=== PATIENT | male | born 1990 | race Two or more races ===

== ENCOUNTER 2017-03-01 14:06 | Inpatient (IN) | payer OTHER ==
[~2017-03-01] VITALS: Ht 180.3 cm; Wt 79.4 kg
--- NOTE | 2017-03-01 14:23 | Emergency Room Report ---
History of Present Illness General Chief Complaint: Skin Rash/Abscess Source: Patient Present Illness HPI Patient's 26-year-old male presented after increased bilateral groin pain. Patient had prior history of hidradenitis suppurativa. Patient previously had surgery on both axilla. The patient denied any current fever. He reported having open lesions to both inguinal areas. He denied any vomiting or diarrhea. He reported having moderate pain. Allergies: Coded Allergies: No Known Allergies (Unverified , 03/01/17) Patient History Past Medical History: see triage record Reviewed Nursing Documentation: PMH: Agreed, PSxH: Agreed Nursing Documentation-PMH Past Medical History: No History, Except For Review of Systems All Other Systems: negative except mentioned in HPI Physical Exam Vital Signs Date Time Temp Pulse Resp B/P Pulse Ox O2 Delivery O2 Flow Rate FiO2 03/01/17 14:08 97.9 130 20 138/74 99 Room Air Sp02 EP Interpretation: reviewed, normal General Appearance: normal inspection, well appearing, no apparent distress, alert, GCS 15, non-toxic Head: atraumatic ENT: normal ENT inspection, hearing grossly normal, normal voice Neck: normal inspection, full range of motion, supple, no bony tend Respiratory: normal inspection, lungs clear, normal breath sounds, no respiratory distress, no retraction, no wheezing Cardiovascular #1: regular rate, rhythm, no edema Gastrointestinal: normal inspection, normal bowel sounds, non tender, soft, no guarding, no hernia Genitourinary: no CVA tenderness Musculoskeletal: normal inspection, back normal, normal range of motion Neurologic: normal inspection, alert, oriented x3, responsive, drawing frame tender III-XII nml as tested, speech normal Psychiatric: normal inspection, judgement/insight normal, mood/affect normal Skin: other - lesion to both inguinal area Medical Decision Making Diagnostic Impression: Primary Impression: Hidradenitis suppurativa ER Course Patient presented for extremity pain. Differential diagnosis included was not limited to cellulitis, abscess, hidradenitis, Fourniere's gangrene, folliculitis , among others. Because of complexity of patient's case laboratory testing and imaging studies were ordered. The patient was given IV antibiotics and pain medications. Laboratory studies were unremarkable except for mild hyperglycemia Dr. Gallardo was contacted for inpatient management for Dr. Chavez. EKG interpreted by me shows sinus tachycardia [address] or T wave changes. Labs Test 03/01/17 14:48 White Blood Count 10.4 K/UL (4.8-10.8) Red Blood Count 5.41 M/UL (4.70-6.10) Hemoglobin 14.8 G/DL (14.2-18.0) Hematocrit 46.0 % (42.0-52.0) Mean Corpuscular Volume 85 FL (80-99) Mean Corpuscular Hemoglobin 27.3 PG (27.0-31.0) Mean Corpuscular Hemoglobin Concent 32.2 G/DL (32.0-36.0) Red Cell Distribution Width 13.8 % (11.6-14.8) Platelet Count 388 K/UL (150-450) Mean Platelet Volume 5.5 FL (6.5-10.1) Neutrophils (%) (Auto) 74.9 % (45.0-75.0) Lymphocytes (%) (Auto) 15.9 % (20.0-45.0) Monocytes (%) (Auto) 4.5 % (1.0-10.0) Eosinophils (%) (Auto) 4.0 % (0.0-3.0) Basophils (%) (Auto) 0.8 % (0.0-2.0) Prothrombin Time 10.7 SEC (9.30-11.50) Prothromb Time International Ratio 1.1 (0.9-1.1) Activated Partial Thromboplast Time 31 SEC (23-33) Sodium Level 136 mEQ/L (135-145) Potassium Level 3.7 mEQ/L (3.4-4.9) Chloride Level 97 mEQ/L (98-107) Carbon Dioxide Level 28 mEQ/L (20-30) Anion Gap 11 (5-15) Blood Urea Nitrogen 11 mg/dL (7-23) Creatinine 0.7 mg/dL (0.7-1.2) Estimat Glomerular Filtration Rate > 60 mL/min (>60) Glucose Level 134 mg/dL (74-106) Calcium Level 9.6 mg/dL (8.6-10.2) Total Bilirubin 0.3 mg/dL (0.0-1.2) Aspartate Amino Transf (AST/SGOT) 18 U/L (5-40) Alanine Aminotransferase (ALT/SGPT) 16 U/L (3-41) Alkaline Phosphatase 74 U/L (40-129) Total Protein 8.8 g/dL (6.6-8.7) Albumin 4.2 g/dL (3.5-5.2) Globulin 4.6 g/dL Albumin/Globulin Ratio 0.9 (1.0-2.7) EKG Diagnostic Results Rate: tachycardiac - 107 Rhythm: NSR ST Segments: no acute changes Chest X-Ray Diagnostic Results EP Interpretation: Yes Findings: no consolidation, no effusion, no pneumothorax, no acute cardiopulmonary disease Number of Views: 1 Last Vital Signs Date Time Temp Pulse Resp B/P Pulse Ox O2 Delivery O2 Flow Rate FiO2 03/01/17 14:08 97.9 130 20 138/74 99 Room Air Status: unchanged Disposition: ADMITTED INPATIENT Condition: Serious Carroll Wallace March 01, 2017 14:23
[2017-03-01] MEDS ORDERED: ceFAZolin sod 1 GM in NS 55 ML IVPB ONE (14:30)
[2017-03-01] MEDS ORDERED: Morphine Sulfate 4mg/ml Inj IVP ONE (14:30)
--- NOTE | 2017-03-01 15:15 | Diagnostic Imaging Report ---
Indication: Chest Pain Comparison: None A single view chest radiograph was obtained. Findings: Cardiomediastinal appearance is within normal limits for age. Pulmonary vascularity is appropriate. The diaphragmatic contour is smooth and costophrenic angles are sharp. No pleural effusions are identified. The bones are unremarkable. Impression: No acute findings
[2017-03-01 15:30] VITALS: BP 138/74
[2017-03-01 15:34] LABS: BASOPHILS % (AUTO) 0.8 % (0.0-2.0); LYMPHOCYTES % (AUTO) 15.9 % (20.0-45.0); MEAN CORPUSCULAR HEMOGLOBIN 27.3 PG (27.0-31.0); MEAN CORPUSCULAR HGB CONC 32.2 G/DL (32.0-36.0); MEAN CORPUSCULAR VOLUME 85 FL (80-99); MEAN PLATELET VOLUME 5.5 FL (6.5-10.1); MONOCYTES % (AUTO) 4.5 % (1.0-10.0); NEUTROPHILS % (AUTO) 74.9 % (45.0-75.0); PLATELET COUNT 388 K/UL (150-450); RED BLOOD COUNT 5.41 M/UL (4.70-6.10); RED CELL DISTRIBUTION WIDTH 13.8 % (11.6-14.8); WHITE BLOOD COUNT 10.4 K/UL (4.8-10.8)
[2017-03-01 15:39] LABS: INR 1.1 (0.9-1.1); PROTHROMBIN TIME 10.7 SEC (9.30-11.50)
[2017-03-01 15:42] LABS: ALANINE AMINOTRANSFERASE 16 U/L (3-41); ALBUMIN/GLOBULIN RATIO 0.9 (1.0-2.7); ANION GAP 11 (5-15); ASPARTATE AMINO TRANSFERASE 18 U/L (5-40); CALCIUM 9.6 mg/dL (8.6-10.2); CARBON DIOXIDE 28 mEQ/L (20-30); CHLORIDE 97 mEQ/L (98-107); CREATININE 0.7 mg/dL (0.7-1.2); GLOMERULAR FILTRATION RATE > 60 mL/min (>60); HEMOLYSIS 2; POTASSIUM 3.7 mEQ/L (3.4-4.9); SODIUM 136 mEQ/L (135-145); TOTAL PROTEIN 8.8 g/dL (6.6-8.7)
[2017-03-01 17:13] VITALS: BP 114/72
[2017-03-01] MEDS ORDERED: CYMBALTA60 MG ORAL (17:34)
[2017-03-01] MEDS ORDERED: NORCO 10/3251 EA ORAL (17:34)
--- NOTE | 2017-03-01 18:43 | History and Physical ---
History of Present Illness General Date patient seen: March 01, 2017 Time patient seen: 18:38 Reason for Hospitalization: Skin Rash/Abscess Present Illness HPI 26 y/o man with hx of hidradenitis suppurativa, s/p multiple surgeries in the past for axilla and groins, presents to ER with groin pain, not amenable to outpt pain meds. Denies any fevers/chills, has taken multiple doses of outpt abx without much improvement. Pt has excellent exercise tolerance, and has not had any complications from gen anesthesia with his previous surgeries Allergies: Coded Allergies: No Known Allergies (Unverified , 03/01/17) Medication History Scheduled Duloxetine Hcl* (Cymbalta*), 60 MG ORAL DAILY, (Reported) Scheduled PRN Hydrocodone/Acetaminophen (Hydrocodon-Acetaminophn 10-325), 1 TAB ORAL BID PRN for For Pain, (Reported) Patient History History Provided By: Patient Healthcare decision maker Resuscitation status Advanced Directive on File Past Medical/Surgical History Past Medical/Surgical History: (1) Hidradenitis suppurativa Family History Family History: Patient reports no known family medical history. Social History Social History: (1) No significant social history Review of Systems ROS Narrative CONSTITUTIONAL: No weight loss, fever, chills, weakness or fatigue. HEENT: Eyes: No visual loss, blurred vision, double vision or yellow sclerae. Ears, Nose, Throat: No hearing loss, sneezing, congestion, runny nose or sore throat. SKIN: No rash or itching. CARDIOVASCULAR: No chest pain, chest pressure or chest discomfort. No palpitations or edema. RESPIRATORY: No shortness of breath, cough or sputum. GASTROINTESTINAL: No anorexia, nausea, vomiting or diarrhea. No abdominal pain or blood. NEUROLOGICAL: No headache, dizziness, syncope, paralysis, ataxia, numbness or tingling in the extremities. No change in bowel or bladder control. MUSCULOSKELETAL: No muscle, back pain, joint pain or stiffness. +groin pain HEMATOLOGIC: No anemia, bleeding or bruising. LYMPHATICS: No enlarged nodes. No history of splenectomy. PSYCHIATRIC: No history of depression or anxiety. ENDOCRINOLOGIC: No reports of sweating, cold or heat intolerance. No polyuria or polydipsia. ALLERGIES: No history of asthma, hives, eczema or rhinitis. Physical Exam Physical Exam Narrative General: alert, cooperative, no distress, appears stated age Head: normocephalic, without obvious abnormality, atraumatic Eyes: conjunctivae/corneas clear. PERRL, EOM's intact Throat: lips, mucosa, and tongue normal. MMM Neck: supple, symmetrical, trachea midline, and no JVD Lungs: clear to auscultation bilaterally Heart: regular rate and rhythm, S1, S2 normal, no murmur, click, rub or gallop Abdomen: soft, non-tender, non-distended, bowel sounds normal; no masses or organomegaly, multiple open lesions in the groin area Extremities: extremities normal, atraumatic, no cyanosis or edema Pulses: 2+ and symmetric Skin: skin color, texture, turgor normal; no rashes or lesions Neurologic: grossly normal, no focal deficits Last 24 Hour Vital Signs Date Time Temp Pulse Resp B/P Pulse Ox O2 Delivery O2 Flow Rate FiO2 03/01/17 17:14 76 20 114/72 100 Room Air 03/01/17 17:13 97.6 76 20 114/72 100 Room Air 03/01/17 15:30 97.9 72 20 138/74 99 Room Air 03/01/17 14:08 97.9 130 20 138/74 99 Room Air Laboratory Tests Test 03/01/17 14:48 White Blood Count 10.4 K/UL (4.8-10.8) Red Blood Count 5.41 M/UL (4.70-6.10) Hemoglobin 14.8 G/DL (14.2-18.0) Hematocrit 46.0 % (42.0-52.0) Mean Corpuscular Volume 85 FL (80-99) Mean Corpuscular Hemoglobin 27.3 PG (27.0-31.0) Mean Corpuscular Hemoglobin Concent 32.2 G/DL (32.0-36.0) Red Cell Distribution Width 13.8 % (11.6-14.8) Platelet Count 388 K/UL (150-450) Mean Platelet Volume 5.5 FL (6.5-10.1) L Neutrophils (%) (Auto) 74.9 % (45.0-75.0) Lymphocytes (%) (Auto) 15.9 % (20.0-45.0) L Monocytes (%) (Auto) 4.5 % (1.0-10.0) Eosinophils (%) (Auto) 4.0 % (0.0-3.0) H Basophils (%) (Auto) 0.8 % (0.0-2.0) Prothrombin Time 10.7 SEC (9.30-11.50) Prothromb Time International Ratio 1.1 (0.9-1.1) Activated Partial Thromboplast Time 31 SEC (23-33) Sodium Level 136 mEQ/L (135-145) Potassium Level 3.7 mEQ/L (3.4-4.9) Chloride Level 97 mEQ/L (98-107) L Carbon Dioxide Level 28 mEQ/L (20-30) Anion Gap 11 (5-15) Blood Urea Nitrogen 11 mg/dL (7-23) Creatinine 0.7 mg/dL (0.7-1.2) Estimat Glomerular Filtration Rate > 60 mL/min (>60) Glucose Level 134 mg/dL (74-106) H Calcium Level 9.6 mg/dL (8.6-10.2) Total Bilirubin 0.3 mg/dL (0.0-1.2) Aspartate Amino Transf (AST/SGOT) 18 U/L (5-40) Alanine Aminotransferase (ALT/SGPT) 16 U/L (3-41) Alkaline Phosphatase 74 U/L (40-129) Total Protein 8.8 g/dL (6.6-8.7) H Albumin 4.2 g/dL (3.5-5.2) Globulin 4.6 g/dL Albumin/Globulin Ratio 0.9 (1.0-2.7) L Height (Feet): 5 Height (Inches): 11.00 Weight (Pounds): 175 Assessment/Plan Problem List: (1) Abscess Assessment & Plan: Admit to inpatient Check blood cx Pain control Supp care IV abx Plastic surgery consult If patient is required to have surgery, based on the patient's medical history, and other available ancillary data, the patient is a LOW risk for an INTERMEDIATE risk procedure. Per the most recent ACC/AHA guidelines, the patient does not need any further cardiopulmonary testing prior to the procedure and there do not appear to be any clear medical contraindications to proceeding with the proposed procedure. A total of 32 additional mins of time was spent above and beyond the time of the face to face visit ICD Codes: L02.91 - Cutaneous abscess, unspecified SNOMED: [id number] ERNESTINE JAIMES March 01, 2017 18:43
[2017-03-01] MEDS ORDERED: Mylanta II UD 30ml ORAL PRN (18:45)
[2017-03-01] MEDS ORDERED: LORazepam Inj 2mg/ml 1ml IV PRN (18:45)
[2017-03-01] MEDS ORDERED: Miralax 17gm pkt ORAL PRN (18:45)
[2017-03-01] MEDS ORDERED: Morphine Sulfate 2mg/ml Inj IVP PRN (18:45)
[2017-03-01] MEDS ORDERED: Milk of Magnesia 30ml Ud ORAL PRN (18:45)
[2017-03-01] MEDS ORDERED: Morphine Sulfate 4mg/ml Inj IVP PRN (18:45)
[2017-03-01] MEDS: Docusate 100mg cap ORAL SCH (20:41)
[2017-03-01] MEDS: D5NS 1,000 ML IV SCH (20:43)
[2017-03-01 21:31] VITALS: BP 118/77
[2017-03-01] MEDS: ceFAZolin sod 1 GM in D5W 55 ML IVPB SCH (22:22)
[2017-03-02] VITALS (16 sets, daily range): BP systolic 97–128; BP diastolic 48–73
[2017-03-02 05:13] LABS: ANION GAP 13 (5-15); CALCIUM 9.3 mg/dL (8.6-10.2); CARBON DIOXIDE 26 mEQ/L (20-30); CHLORIDE 99 mEQ/L (98-107); CREATININE 0.6 mg/dL (0.7-1.2); GLOMERULAR FILTRATION RATE > 60 mL/min (>60); HEMOLYSIS 0; POTASSIUM 4.3 mEQ/L (3.4-4.9); SODIUM 138 mEQ/L (135-145)
[2017-03-02] MEDS: ceFAZolin sod 1 GM in D5W 55 ML IVPB SCH ×3 (06:17→21:39)
--- NOTE | 2017-03-02 08:23 | Pre-Procedure Note/Attestation ---
Pre-Procedure Note/Attestation Complete Prior to Procedure Planned Procedure: bilateral Procedure Narrative: Excision of bilateral groin tissue and flap elevation Attestation I attest that I discussed the nature of the procedure; its benefits; risks and complications; and alternatives (and the risks and benefits of such alternatives ), prior to the procedure, with the patient (or the patient's legal sales representative meats). I attest that, if there was a reasonable possibility of needing a blood transfusion, the patient (or the patient's legal sales representative meats) was given the [facility] standardized written summary, pursuant to the Ryne Archana Blood Safety Act ([place] Health and Safety Code # 1645, as amended). I attest that I re-evaluated the patient just prior to the surgery and that there has been no change in the patient's H&P, except as documented below: RENÉE ANNE March 02, 2017 08:23
--- NOTE | 2017-03-02 08:25 | Operative Note - PDOC ---
Operative Note Operative Note Procedure: Bilateral groin infected tissue excision and flap elevation Post-op Diagnosis: same as pre-op Surgeon: Brandon Skate Shop Attendant: Jeremiah Anesthesia: general Specimen: yes Complications: none Condition: stable Estimated Blood Loss: minimal Drains: none Implant(s) used?: No RENÉE ANNE March 02, 2017 08:25
[2017-03-02] MEDS ORDERED: Bacitracin 50000 Units Vial ONE (08:45)
[2017-03-02] MEDS ORDERED: Lidocaine 2% 20mg/ml/Epi 0.005mg/ml 20ml vial ONE ×3 (08:45→13:24)
[2017-03-02] MEDS: Heparin 5000 units/ml inj SUBQ SCH ×2 (09:00→21:40)
[2017-03-02] MEDS: Docusate 100mg cap ORAL SCH ×2 (09:00→21:39)
[2017-03-02] MEDS ORDERED: Neostigmine 1mg/ml 10ml Inj ONE (09:00)
[2017-03-02] MEDS ORDERED: Nimbex 2mg/ml Inj 10ML IVP ONE (09:00)
[2017-03-02] MEDS ORDERED: Propofol 10mg/ml 20ml IV ONE (09:00)
[2017-03-02] MEDS ORDERED: fentaNYL 100 mcg/2 mL IV ONE (09:00)
[2017-03-02] MEDS ORDERED: Sterile Water Irrig 1000ml IRRIG ONE (09:00)
[2017-03-02] MEDS ORDERED: LR 1000ml ONE ×2 (09:00)
[2017-03-02] MEDS: Lactobacillus-GG tablet ORAL SCH ×2 (09:00→17:51)
[2017-03-02] MEDS ORDERED: Succinylcholine 20mg/ml 10ml vial ONE (09:00)
[2017-03-02] MEDS ORDERED: Morphine Sulfate 10mg/ml Inj ONE (09:00)
[2017-03-02] MEDS ORDERED: Ketorolac 30mg Inj ONE (09:00)
[2017-03-02] MEDS ORDERED: Glycopyrrolate 0.2mg/ml 1ml Vial ONE (09:00)
[2017-03-02] MEDS ORDERED: Midazolam 2mg/2ml Inj ONE (09:00)
[2017-03-02] MEDS ORDERED: NS Irrig 1000ml ONE (09:00)
[2017-03-02] MEDS ORDERED: LR 1000ml 1,000 ML IVLG SCH (10:16)
--- NOTE | 2017-03-02 10:16 | Anethesia Preoperative Eval ---
Anesthesia Pre-op PMH/ROS General Date of Evaluation: March 02, 2017 Time of Evaluation: 10:10 Anesthesiologist: Zac ASA Score: ASA 2 Mallampati Score Class I : Soft palate, uvula, fauces, pillars visible Class II: Soft palate, uvula, fauces visible Class III: Soft palate, base of uvula visible Class IV: Only hard plate visible Mallampati Classification: Class II Surgeon: Brandon Diagnosis: Recurrent HS Surgical Procedure: Excision of bilateral groin hydradenitis Anesthesia History: none Family History: no anesthesia problems Allergies: Coded Allergies: No Known Allergies (Unverified , 03/01/17) Medications: see eMAR Past Medical History Cardiovascular: Denies: CAD, HTN, NM, arrhythmia, other, valve dz Pulmonary: Denies: COPD, OPHELIA, asthma, other Gastrointestinal/Genitourinary: Reports: GERD - mild, Denies: CRI, ESRD, other Neurologic/Psychiatric: Reports: depression/anxiety, Denies: CVA, TIA, dementia, other Endocrine: Denies: DM, hypothyroidism, other, steroids HEENT: Denies: [place] (L), [place] (R), cataract (L), cataract (R), glaucoma, other Hematology/Immune: Denies: DVT, anemia, bleeding disorder, other Musculoskeletal/Integumentary: Reports: other - Recurrent HS PMH Narrative: as above PSxH Narrative: Multiple Sx for HS treatment. Anesthesia Pre-op Phys. Exam Physician Exam Last Vital Signs Date Time Temp Pulse Resp B/P Pulse Ox O2 Delivery O2 Flow Rate FiO2 03/02/17 08:00 97.7 91 20 116/70 99 Room Air Constitutional: NAD Neurologic: CN 2-12 intact Cardiovascular: RRR, no M/R/G Respiratory: CTA Gastrointestinal: S/NT/ND Airway Exam Mallampati Score: Class II MO: full Neck: flexible ROM: full Teeth: intact Dentures: no lower, no upper Anesthesia Pre-op A/P Labs Hematology Test 03/01/17 14:48 White Blood Count 10.4 K/UL (4.8-10.8) Red Blood Count 5.41 M/UL (4.70-6.10) Hemoglobin 14.8 G/DL (14.2-18.0) Hematocrit 46.0 % (42.0-52.0) Mean Corpuscular Volume 85 FL (80-99) Mean Corpuscular Hemoglobin 27.3 PG (27.0-31.0) Mean Corpuscular Hemoglobin Concent 32.2 G/DL (32.0-36.0) Red Cell Distribution Width 13.8 % (11.6-14.8) Platelet Count 388 K/UL (150-450) Mean Platelet Volume 5.5 FL (6.5-10.1) L Neutrophils (%) (Auto) 74.9 % (45.0-75.0) Lymphocytes (%) (Auto) 15.9 % (20.0-45.0) L Monocytes (%) (Auto) 4.5 % (1.0-10.0) Eosinophils (%) (Auto) 4.0 % (0.0-3.0) H Basophils (%) (Auto) 0.8 % (0.0-2.0) Coagulation Test 03/01/17 14:48 Prothrombin Time 10.7 SEC (9.30-11.50) Prothromb Time International Ratio 1.1 (0.9-1.1) Activated Partial Thromboplast Time 31 SEC (23-33) Chemistry Test 03/01/17 14:48 03/02/17 04:30 Sodium Level 136 mEQ/L (135-145) 138 mEQ/L (135-145) Potassium Level 3.7 mEQ/L (3.4-4.9) 4.3 mEQ/L (3.4-4.9) Chloride Level 97 mEQ/L (98-107) L 99 mEQ/L (98-107) Carbon Dioxide Level 28 mEQ/L (20-30) 26 mEQ/L (20-30) Anion Gap 11 (5-15) 13 (5-15) Blood Urea Nitrogen 11 mg/dL (7-23) 10 mg/dL (7-23) Creatinine 0.7 mg/dL (0.7-1.2) 0.6 mg/dL (0.7-1.2) L Estimat Glomerular Filtration Rate > 60 mL/min (>60) > 60 mL/min (>60) Glucose Level 134 mg/dL (74-106) H 110 mg/dL (74-106) H Calcium Level 9.6 mg/dL (8.6-10.2) 9.3 mg/dL (8.6-10.2) Total Bilirubin 0.3 mg/dL (0.0-1.2) Aspartate Amino Transf (AST/SGOT) 18 U/L (5-40) Alanine Aminotransferase (ALT/SGPT) 16 U/L (3-41) Alkaline Phosphatase 74 U/L (40-129) Total Protein 8.8 g/dL (6.6-8.7) H Albumin 4.2 g/dL (3.5-5.2) Globulin 4.6 g/dL Albumin/Globulin Ratio 0.9 (1.0-2.7) L Risk Assessment & Plan Assessment: ASA 2 Plan: GA wit ETT PONV prevention Status Change Before Surgery: No Pre-Antibiotics Drug: Ancef 1gr. Given Within 1 Hr of Incision: Yes Time Given: 10:32 SEB MCWILLIAMS M.D. March 02, 2017 10:16
[2017-03-02] MEDS ORDERED: Metoclopramide 10mg/2ml Inj IVP PRN (10:30)
[2017-03-02] MEDS ORDERED: Meperidine 25mg/0.5ml Inj IV PRN (10:30)
[2017-03-02] MEDS ORDERED: Ketorolac 30mg Inj IV PRN (10:30)
[2017-03-02] MEDS ORDERED: Hydromorphone 0.5mg/0.5ml inj IVP PRN (10:30)
[2017-03-02] MEDS ORDERED: DiphenhydrAMINE 50mg/ml Inj IVP PRN (10:30)
[2017-03-02] MEDS ORDERED: PCA HYDROmorphone 1mg/ml 30 ML IV PRN (10:30)
[2017-03-02] MEDS ORDERED: Rate Change PCA 1 Each MISC PRN (10:30)
[2017-03-02] MEDS ORDERED: Midazolam 2mg/2ml Inj IVP PRN (10:30)
[2017-03-02] MEDS ORDERED: Surgicel 4in x 8in TOPIC ONE (10:33)
--- NOTE | 2017-03-02 11:08 | Immediate Post-Op Evaluation ---
Immediate Post-Op Evalulation Immediate Post-Op Evalulation Procedure: Excision of bilateral groin hydradenitis Date of Evaluation: March 02, 2017 Time of Evaluation: 11:07 IV Fluids: 1500 Blood Products: none Estimated Blood Loss: 100 Urinary Output: 100 Blood Pressure Systolic: 103 Blood Pressure Diastolic: 56 Pulse Rate: 92 Respiratory Rate: 20 O2 Sat by Pulse Oximetry: 99 Temperature (Fahrenheit): 98.6 Pain Score (1-10): 2 Nausea: No Vomiting: No Complications none Patient Status: reacts, patent, extubated, none Hydration Status: adequate SEB MCWILLIAMS M.D. March 02, 2017 11:08
[2017-03-02] MEDS: PCA HYDROmorphone 1mg/ml 30 ML IV PRN (12:23)
[2017-03-02] MEDS: D5NS 1,000 ML IV SCH (14:40)
--- NOTE | 2017-03-02 16:48 | Operative Note - Dictated ---
DATE OF OPERATION: 03/01/2017 PREOPERATIVE DIAGNOSES: 1. Bilateral infected groin masses. 2. Mons abscess. POSTOPERATIVE DIAGNOSIS: 1. Bilateral infected groin masses. 2. Mons abscess. PROCEDURES: 1. Radical excision of left groin tissue. 2. Radical excision of right groin tissue. 3. Debridement of mons. 4. Elevation of a fasciocutaneous medial thigh flap for staged closure of left groin wound. 5. Elevation of a fasciocutaneous medial thigh flap for a staged closure of right groin wound. 6. Elevation of a fasciocutaneous superior abdominal flap for closure of mons wound. SURGEON: Bradley Taylor M.D. SILO OPERATOR: Chastity Daniels M.D. ANESTHESIA: General. COMPLICATIONS: None. SPECIMEN: Included three specimens, one from each groin, one from the mons. EBL: 25 mL. DISPOSITION: Stable to the recovery room. INDICATIONS FOR SURGERY: This is a 26-year-old male, admitted to the emergency room with areas of drainage and pus in bilateral groin and mons regions. In addition, he has got evidence of ongoing infection in his buttock in the pilonidal region. He was complaining of significant amount of pain in these areas. He was admitted for IV antibiotics and upon evaluation by me I felt that he was an appropriate candidate for a staged approach of excision with reconstruction. He understands the risks, benefits of surgery and agrees to proceed. DETAILS OF THE OPERATION: The patient was brought to the operating room and laid in the lithotomy position on the operating table. His bilateral groin, upper thigh, lower abdomen, and perineal regions were prepped and draped in a sterile and usual fashion. Preoperatively the areas that needed to be excised were marked and we first began by debriding the mons tissue which was in the central portion of the mons and measured approximately 4 x 5 centimeters. A viral-shaped incision was made to excise the infected tissue on block down to healthy bleeding tissue. Following this, the wound was then copiously irrigated with pulse lavage and hemostasis was achieved. A superior fasciocutaneous flap had to be elevated to allow for a tension-free closure of the repair at a second stage as the wound was not amenable for primary closure. This was done with electrocautery used to undermine the flap with proximal and distal incisions made to fully mobilize the flap with perforators off of the superficial and inferior epigastric artery feeding the flap. We then turned our attention to the groin. On the right side, we used a #10 blade to perform a radical excision of the entire mass, infected mass all the way down to the level of the adductor fascia. Once the mass was completely excised, we then proceeded to raise the medial thigh flap based off of perforators of the superficial femoral artery. The flap was elevated at the fasciocutaneous level with proximal and distal incisions made to fully mobilize the flap and then upon mobilization we noted that the defect could be closed primarily with a flap mobilization. The defect prior to flap closure was approximately 12 x 10 cm and then following this the contralateral left groin mass was approached using a #10 blade. The radical excision was performed after the skin incision was done. Electrocautery was used to get down to the adductor fascia to fully excise the infected groin mass. Again on this side, the wound was not amenable to primary closure. As such, a medial thigh flap based off of perforators of the superficial femoral artery had to be elevated with proximal and distal incisions made to fully mobilize the flap. The flap was elevated at the fascia level and upon full mobilization of the flap it was noted that the wound could be closed. This wound measured 13 x 8 cm and in addition of note both groin masses had purulent material coming out of them which was sent for culture. All wounds were copiously irrigated with pulse lavage. Once again, hemostasis was achieved. There was no evidence of ongoing bleeding. The wounds were then packed and the wounds were partially closed with juan pablo with the anticipation of bringing the patient back in 72 to 96 hours for definitive wound closure with flap readvancement and closure. The patient tolerated the procedure well. There was no complications. Bradley Taylor M.D. DR: Carlyle JOB#: [id number] CC:
--- NOTE | 2017-03-02 16:59 | Consultation ---
DATE OF CONSULTATION: 03/02/2017 REASON FOR CONSULTATION: Multiple infected groin tissues and buttock abscesses. HISTORY OF PRESENT ILLNESS: This is a 26-year-old male, admitted to the emergency room for infection of his groin and buttock region. He has been in significant amount of pain associated with drainage requiring occasional antibiotics as well as a daily use of pain medication. Upon evaluation by me, I felt that he was an appropriate candidate for surgical intervention. PAST SURGICAL HISTORY: Significant for previous reconstruction of his axillary regions for hidradenitis. PAST MEDICAL HISTORY: Hidradenitis. ALLERGIES: None. MEDICATIONS: Cymbalta and hydrocodone. PHYSICAL EXAMINATION: GENERAL: The patient is alert and oriented x3. HEART: Regular rate and rhythm. ABDOMEN: Soft, nontender, and nondistended. EXTREMITIES: Examination of the trunk and extremities revealed multiple areas of abscesses with a contiguous infected regions within both groins. There are abscess in the mons. There is also extensive induration and abscesses in inner buttocks on both sides. With an extensive pilonidal abscess. ASSESSMENT AND PLAN: This is a 26-year-old male with multiple areas of induration and an infected tissue in the setting of hidradenitis. The patient will require a staged approach to address these areas. At the initial operation, the plan will be to perform a definitive radical excision of bilateral groin tissues with staged reconstruction. He understands that he will need more than one operation to achieve this goal and all those questions were answered and he agrees to proceed to the operating room today. Bradley Taylor M.D. DR: JAYANT JOB#: [id number] CC:
--- NOTE | 2017-03-02 17:06 | General Progress Note ---
Assessment/Plan Problem List: (1) Abscess Assessment & Plan: s/p I+D of groin earlier today Check blood cx Pain control Supp care Cont IV abx DVT ppx Wound care per Plastic surgery A total of 32 additional mins of time was spent above and beyond the time of the face to face visit ICD Codes: L02.91 - Cutaneous abscess, unspecified SNOMED: 994118975 Subjective Date patient seen: March 02, 2017 Time patient seen: 17:04 ROS Limited/Unobtainable: No Allergies: Coded Allergies: No Known Allergies (Unverified , 03/01/17) Subjective s/p surgery earlier today, no periop or postop complications. no chest pain or dyspnea, postop pain well controlled. Objective Last 24 Hour Vital Signs Date Time Temp Pulse Resp B/P Pulse Ox O2 Delivery O2 Flow Rate FiO2 03/02/17 14:18 18 03/02/17 13:55 98.0 03/02/17 13:48 18 03/02/17 13:18 18 03/02/17 12:59 20 03/02/17 12:35 98.0 72 20 106/60 100 Nasal Cannula 2.0 03/02/17 12:30 20 03/02/17 12:23 20 03/02/17 12:15 80 20 111/62 100 Nasal Cannula 2.0 03/02/17 12:12 98.0 03/02/17 12:12 98.0 03/02/17 12:00 91 20 112/63 100 Nasal Cannula 2.0 03/02/17 11:45 89 20 109/64 100 Nasal Cannula 2.0 03/02/17 11:33 87 20 112/62 100 Simple Mask 8.0 03/02/17 11:18 96 20 113/64 100 Simple Mask 8.0 03/02/17 11:10 94 20 109/57 100 Simple Mask 8.0 03/02/17 11:08 92 20 99 03/02/17 11:05 100 20 106/59 100 Simple Mask 8.0 03/02/17 10:58 98.6 119 20 97/48 100 Simple Mask 8.0 03/02/17 08:00 97.7 91 20 116/70 99 Room Air 03/02/17 04:00 97.7 68 18 108/64 97 Room Air 03/02/17 00:16 97.7 77 20 118/73 98 Room Air 03/01/17 21:31 97.7 77 20 118/77 98 Room Air 03/01/17 17:14 76 20 114/72 100 Room Air 03/01/17 17:13 97.6 76 20 114/72 100 Room Air Intake and Output 03/01/17 03/02/17 19:00 07:00 Intake Total 0 ml 350 ml Balance 0 ml 350 ml Intake Oral 0 ml IV Total 350 ml # Voids 2 Laboratory Tests 03/02/17 04:30: Sodium Level 138, Potassium Level 4.3, Chloride Level 99, Carbon Dioxide Level 26, Anion Gap 13, Blood Urea Nitrogen 10, Creatinine 0.6L, Estimat Glomerular Filtration Rate > 60, Glucose Level 110H, Calcium Level 9.3 Height (Feet): 5 Height (Inches): 11.00 Weight (Pounds): 175 Objective General: alert, cooperative, no distress, appears stated age Head: normocephalic, without obvious abnormality, atraumatic Eyes: conjunctivae/corneas clear. PERRL, EOM's intact Throat: lips, mucosa, and tongue normal. MMM Neck: supple, symmetrical, trachea midline, and no JVD Lungs: clear to auscultation bilaterally Heart: regular rate and rhythm, S1, S2 normal, no murmur, click, rub or gallop Abdomen: soft, non-tender, non-distended, bowel sounds normal; no masses or organomegaly Extremities: extremities normal, atraumatic, no cyanosis or edema Pulses: 2+ and symmetric Skin: skin color, texture, turgor normal; no rashes or lesions Neurologic: grossly normal, no focal deficits ERNESTINE JAIMES March 02, 2017 17:06
[2017-03-02] MEDS: PCA shift volume MISC SCH (19:13)
[2017-03-02] MEDS ORDERED: Zolpidem 5mg tab ORAL PRN (21:00)
[2017-03-03] VITALS: BP 107/66
[2017-03-03 04:00] VITALS: BP 121/62
[2017-03-03] MEDS: ceFAZolin sod 1 GM in D5W 55 ML IVPB SCH ×3 (06:08→20:58)
[2017-03-03] MEDS: PCA shift volume MISC SCH ×2 (07:00→19:00)
[2017-03-03] MEDS: D5NS 1,000 ML IV SCH (07:12)
[2017-03-03 08:51] VITALS: BP 109/70
--- NOTE | 2017-03-03 09:55 | General Progress Note ---
Progress Note Progress Note Pt seen and examined. POD# 1 and doing well. Dressings CDI Plan for definitive wound closure on Sunday. Continue abx and pain meds. RENÉE Young MD March 03, 2017 09:55
[2017-03-03] MEDS: Docusate 100mg cap ORAL SCH ×2 (10:50→20:58)
[2017-03-03] MEDS: Lactobacillus-GG tablet ORAL SCH ×2 (10:51→17:47)
[2017-03-03] MEDS: Heparin 5000 units/ml inj SUBQ SCH ×2 (10:52→21:02)
[2017-03-03 12:52] VITALS: BP 130/73
[2017-03-03] MEDS: PCA HYDROmorphone 1mg/ml 30 ML IV PRN (13:08)
--- NOTE | 2017-03-03 15:58 | General Progress Note ---
KELSEY BALDWIN N.P. 03/03/17 1558: Subjective Date patient seen: March 03, 2017 Time patient seen: 15:58 Allergies: Coded Allergies: No Known Allergies (Unverified , 03/01/17) Objective Last 24 Hour Vital Signs Date Time Temp Pulse Resp B/P Pulse Ox O2 Delivery O2 Flow Rate FiO2 03/03/17 13:34 98.2 03/03/17 12:52 98.2 99 22 130/73 96 Nasal Cannula 03/03/17 08:51 98.2 97 18 109/70 95 Nasal Cannula 03/03/17 08:00 18 03/03/17 04:00 18 03/03/17 04:00 97.8 82 18 121/62 99 Nasal Cannula 2.0 03/03/17 00:00 16 03/03/17 00:00 98.1 88 17 107/66 98 Nasal Cannula 2.0 03/02/17 20:37 97.7 76 18 107/65 100 Nasal Cannula 2.0 03/02/17 20:00 18 03/02/17 18:18 18 03/02/17 16:00 97.3 76 17 100/68 100 Nasal Cannula 2.0 Intake and Output 03/02/17 03/03/17 19:00 07:00 Intake Total 2280 ml 610 ml Output Total 450 ml 800 ml Balance 1830 ml -190 ml Intake Oral 480 ml 260 ml IV Total 1800 ml 350 ml Output Urine Total 350 ml 800 ml Estimated Blood Loss 100 ml Height (Feet): 5 Height (Inches): 11.00 Weight (Pounds): 175 ERNESTINE JAIMES 03/05/17 1446: Assessment/Plan Assessment/Plan I saw and examined the patient, reviewed the case in detail, reviewed radiology and EKG if applicable, in addition reviewing the laboratory data and microbiology. I agree with the history, physical examination findings, assessment and plan of care as outlined above by the Nurse Practitioner with any additions or modifications noted. Subjective Allergies: Coded Allergies: No Known Allergies (Unverified , 03/01/17) KELSEY BALDWIN N.P. March 03, 2017 15:58 ERNESTINE JAIMES March 05, 2017 14:46
[2017-03-03 16:00] VITALS: BP 116/76
--- NOTE | 2017-03-03 16:00 | General Progress Note ---
KELSEY BALDWIN N.P. 03/03/17 1600: Assessment/Plan Assessment/Plan Assessment & Plan: s/p I+D of groin 03/02/17 Check blood cx- growth so far Pain control Supp care Cont IV abx DVT ppx Wound care per Plastic surgery, dressing changed today, likely to OR on Sunday Subjective Date patient seen: March 03, 2017 Time patient seen: 16:00 Constitutional: Denies: chills, diaphoresis, fever HEENT: Denies: blurred vision, eye pain, tearing Cardiovascular: Denies: chest pain, edema Respiratory: Denies: cough, orthopnea, shortness of breath Gastrointestinal/Abdominal: Denies: abdomen distended, abdominal pain, nausea, poor appetite Genitourinary: Denies: burning, discharge, frequency Neurologic/Psychiatric: Denies: anxiety, depressed, emotional problems Endocrine: Denies: excessive sweating, flushing Hematologic/Lymphatic: Denies: anemia, easy bleeding Allergies: Coded Allergies: No Known Allergies (Unverified , 03/01/17) Subjective To OR on Sunday. Dressings changed by Dr. Taylor. + constipation. Objective Last 24 Hour Vital Signs Date Time Temp Pulse Resp B/P Pulse Ox O2 Delivery O2 Flow Rate FiO2 03/03/17 13:34 98.2 03/03/17 12:52 98.2 99 22 130/73 96 Nasal Cannula 03/03/17 08:51 98.2 97 18 109/70 95 Nasal Cannula 03/03/17 08:00 18 03/03/17 04:00 18 03/03/17 04:00 97.8 82 18 121/62 99 Nasal Cannula 2.0 03/03/17 00:00 16 03/03/17 00:00 98.1 88 17 107/66 98 Nasal Cannula 2.0 03/02/17 20:37 97.7 76 18 107/65 100 Nasal Cannula 2.0 03/02/17 20:00 18 03/02/17 18:18 18 Intake and Output 03/02/17 03/03/17 19:00 07:00 Intake Total 2280 ml 610 ml Output Total 450 ml 800 ml Balance 1830 ml -190 ml Intake Oral 480 ml 260 ml IV Total 1800 ml 350 ml Output Urine Total 350 ml 800 ml Estimated Blood Loss 100 ml Height (Feet): 5 Height (Inches): 11.00 Weight (Pounds): 175 General Appearance: no apparent distress, alert EENT: PERRL/EOMI, normal ENT inspection Neck: non-tender, normal alignment, supple Cardiovascular: normal peripheral pulses, normal rate Respiratory/Chest: chest wall non-tender, lungs clear, normal breath sounds Abdomen: normal bowel sounds, non tender, soft Edema: no edema noted Arm (L), no edema noted Arm (R), no edema noted Leg (L), no edema noted Leg (R), no edema noted Pedal (L), no edema noted Pedal (R), no edema noted Generalized 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 grossly normal, alert, oriented x 3 Lymphatic: normal anterior cervical (L), normal anterior cervical (R), normal axillary (L), normal axillary (R), normal inguinal (L), normal inguinal (R), normal other, normal posterior cervical (L), normal posterior cervical (R), normal submandibular (L), normal submandibular (R), normal supraclavicular (L), normal supraclavicular (R) ERNESTINE JAIMES 03/05/17 1448: Assessment/Plan Assessment/Plan I saw and examined the patient, reviewed the case in detail, reviewed radiology and EKG if applicable, in addition reviewing the laboratory data and microbiology. I agree with the history, physical examination findings, assessment and plan of care as outlined above by the Nurse Practitioner with any additions or modifications noted. Subjective Allergies: Coded Allergies: No Known Allergies (Unverified , 03/01/17) KELSEY BALDWIN N.PPelon March 03, 2017 16:00 ERNESTINE JAIMES March 05, 2017 14:48
--- NOTE | 2017-03-03 17:23 | 48 Hour Post Anesthesia Eval ---
Post Anesthesia Evaluation Procedure: Excision of bilateral groin hydradenitis Date of Evaluation: March 03, 2017 Time of Evaluation: 15:30 Blood Pressure Systolic: 130 0: 73 Pulse Rate: 99 Respiratory Rate: 18 Temperature (Fahrenheit): 98.2 O2 Sat by Pulse Oximetry: 96 Airway: patent Nausea: No Vomiting: No Pain Intensity: 3 Hydration Status: adequate Cardiopulmonary Status: at baseline Mental Status/LOC: patient returned to baseline Post-Anesthesia Complications: 0 Follow-up care needed: N/A - further care as per primary team SANAM CASTELLANO M.D. March 03, 2017 17:23
[2017-03-03 20:00] VITALS: BP 114/64
[2017-03-03] MEDS: DiphenhydrAMINE 50mg/ml Inj IVP PRN (21:54)
[2017-03-04] VITALS: BP 120/65
[2017-03-04 04:00] VITALS: BP 117/66
[2017-03-04] MEDS: ceFAZolin sod 1 GM in D5W 55 ML IVPB SCH ×3 (05:30→21:31)
[2017-03-04] MEDS: DiphenhydrAMINE 50mg/ml Inj IVP PRN ×2 (05:30→21:32)
[2017-03-04] MEDS: D5NS 1,000 ML IV SCH ×2 (06:51→21:40)
[2017-03-04] MEDS: PCA shift volume MISC SCH ×2 (07:00→19:00)
[2017-03-04] MEDS: Docusate 100mg cap ORAL SCH ×2 (08:53→21:31)
[2017-03-04] MEDS: Lactobacillus-GG tablet ORAL SCH ×2 (08:53→18:35)
[2017-03-04 08:55] VITALS: BP 112/68
[2017-03-04] MEDS: Heparin 5000 units/ml inj SUBQ SCH ×2 (08:57→21:40)
[2017-03-04 12:00] VITALS: BP 121/72
[2017-03-04] MEDS: PCA HYDROmorphone 1mg/ml 30 ML IV PRN (13:21)
[2017-03-04] MEDS ORDERED: Rate Change PCA 1 Each MISC PRN (14:00)
[2017-03-04] MEDS ORDERED: NS Irrig 1000ml ONE (16:02)
[2017-03-04 16:38] VITALS: BP 117/65
[2017-03-04 20:00] VITALS: BP 122/79
--- NOTE | 2017-03-04 20:16 | Cardiology Report ---
APPROVED REPORT EKG Measurement Heart [id number] Sinus tachycardia Otherwise normal ECG
[2017-03-05] VITALS: BP 122/73
[2017-03-05 04:00] VITALS: BP 111/67
[2017-03-05] MEDS: ceFAZolin sod 1 GM in D5W 55 ML IVPB SCH ×3 (06:06→21:02)
[2017-03-05] MEDS: PCA shift volume MISC SCH ×2 (07:08→19:28)
[2017-03-05 08:00] VITALS: BP 119/66
[2017-03-05] MEDS: Lactobacillus-GG tablet ORAL SCH ×2 (08:24→18:23)
[2017-03-05] MEDS: Docusate 100mg cap ORAL SCH ×2 (08:24→21:02)
[2017-03-05] MEDS: Heparin 5000 units/ml inj SUBQ SCH ×2 (08:26→21:00)
[2017-03-05] MEDS: DiphenhydrAMINE 50mg/ml Inj IVP PRN ×3 (09:53→23:49)
--- NOTE | 2017-03-05 11:51 | Anethesia Preoperative Eval ---
Anesthesia Pre-op PMH/ROS General Date of Evaluation: March 05, 2017 Time of Evaluation: 16:10 Anesthesiologist: Mumtaz ASA Score: ASA 2 Mallampati Score Class I : Soft palate, uvula, fauces, pillars visible Class II: Soft palate, uvula, fauces visible Class III: Soft palate, base of uvula visible Class IV: Only hard plate visible Mallampati Classification: Class II Surgeon: Brandon Diagnosis: HS Surgical Procedure: Groin wound closure Allergies: Coded Allergies: No Known Allergies (Unverified , 03/01/17) Past Medical History Cardiovascular: Denies: CAD, HTN, [place], arrhythmia, other, valve dz Pulmonary: Denies: COPD, OPHELIA, asthma, other Gastrointestinal/Genitourinary: Reports: GERD, Denies: CRI, ESRD, other Neurologic/Psychiatric: Reports: depression/anxiety, Denies: CVA, TIA, dementia, other Endocrine: Denies: DM, hypothyroidism, other, steroids HEENT: Denies: [place] AND [place] (L), ASSINIB[place]INE AND [place] (R), cataract (L), cataract (R), glaucoma, other Hematology/Immune: Denies: DVT, anemia, bleeding disorder, other Musculoskeletal/Integumentary: Denies: DDD, DJD, OA, RA, edema, other PMH Narrative: GERD, depression PSxH Narrative: HS surgery Anesthesia Pre-op Phys. Exam Physician Exam Last Vital Signs Date Time Temp Pulse Resp B/P Pulse Ox O2 Delivery O2 Flow Rate FiO2 03/05/17 08:00 16 03/05/17 08:00 98.4 96 119/66 96 Room Air 03/03/17 04:00 2.0 Constitutional: NAD Neurologic: CN 2-12 intact Cardiovascular: RRR, no M/R/G Respiratory: CTA Gastrointestinal: S/NT/ND Airway Exam Mallampati Score: Class II MO: full ROM: full Teeth: intact Anesthesia Pre-op A/P Labs WNL Risk Assessment & Plan Assessment: No interval change Plan: GETA Status Change Before Surgery: ISHAN Wilson M.D. March 05, 2017 11:51
[2017-03-05 12:00] VITALS: BP 114/76
--- NOTE | 2017-03-05 15:02 | General Progress Note ---
Assessment/Plan Problem List: (1) Abscess Assessment & Plan: s/p I+D of groin earlier today Check blood cx Pain control Supp care Cont IV abx DVT ppx Wound care per Plastic surgery A total of 32 additional mins of time was spent above and beyond the time of the face to face visit ICD Codes: L02.91 - Cutaneous abscess, unspecified SNOMED: [id number] Subjective Date patient seen: March 05, 2017 Time patient seen: 15:01 ROS Limited/Unobtainable: No Allergies: Coded Allergies: No Known Allergies (Unverified , 03/01/17) Subjective s/p surgery. No chest pain or dyspnea, postop pain well controlled. Objective Last 24 Hour Vital Signs Date Time Temp Pulse Resp B/P Pulse Ox O2 Delivery O2 Flow Rate FiO2 03/05/17 12:00 97.2 99 20 114/76 99 Room Air 03/05/17 12:00 16 03/05/17 08:00 16 03/05/17 08:00 98.4 96 18 119/66 96 Room Air 03/05/17 04:00 16 03/05/17 04:00 97.5 91 16 111/67 99 Room Air 03/05/17 00:00 16 03/05/17 00:00 98.1 95 16 122/73 97 Room Air 03/04/17 20:00 16 03/04/17 20:00 98.8 103 18 122/79 94 Room Air 03/04/17 16:38 99.5 101 22 117/65 96 Room Air 03/04/17 16:00 18 Intake and Output 03/04/17 03/05/17 19:00 07:00 Intake Total 550 ml 240 ml Output Total 800 ml 750 ml Balance -250 ml -510 ml Intake Oral 240 ml IV Total 550 ml Output Urine Total 800 ml 750 ml Height (Feet): 5 Height (Inches): 11.00 Weight (Pounds): 175 Objective General: alert, cooperative, no distress, appears stated age Head: normocephalic, without obvious abnormality, atraumatic Eyes: conjunctivae/corneas clear. PERRL, EOM's intact Throat: lips, mucosa, and tongue normal. MMM Neck: supple, symmetrical, trachea midline, and no JVD Lungs: clear to auscultation bilaterally Heart: regular rate and rhythm, S1, S2 normal, no murmur, click, rub or gallop Abdomen: soft, non-tender, non-distended, bowel sounds normal; no masses or organomegaly Extremities: extremities normal, atraumatic, no cyanosis or edema Pulses: 2+ and symmetric Skin: skin color, texture, turgor normal; no rashes or lesions Neurologic: grossly normal, no focal deficits ERNESTINE JAIMES March 05, 2017 15:02
--- NOTE | 2017-03-05 15:09 | General Progress Note ---
Progress Note Progress Note Pt seen and examined. Doing well. AVSS Dressings CDI To OR tomorrow for wound closure RENÉE ANNE March 05, 2017 15:09
[2017-03-05] MEDS: PCA HYDROmorphone 1mg/ml 30 ML IV PRN (15:58)
[2017-03-05 16:00] VITALS: BP 120/65
[2017-03-05] MEDS: D5NS 1,000 ML IV SCH (16:00)
[2017-03-05 20:00] VITALS: BP 122/73
[2017-03-05] MEDS ORDERED: D5NS 1000ml IV ONE (21:25)
[2017-03-06] VITALS (17 sets, daily range): BP systolic 115–133; BP diastolic 64–83
[2017-03-06] MEDS: ceFAZolin sod 1 GM in D5W 55 ML IVPB SCH ×2 (06:28→14:00)
[2017-03-06] MEDS: PCA shift volume MISC SCH ×2 (07:00→19:05)
[2017-03-06] MEDS: Lactobacillus-GG tablet ORAL SCH ×2 (08:02→18:00)
[2017-03-06] MEDS: Docusate 100mg cap ORAL SCH ×2 (08:02→20:22)
[2017-03-06] MEDS: Heparin 5000 units/ml inj SUBQ SCH ×2 (08:03→20:24)
[2017-03-06] MEDS ORDERED: Surgicel 4in x 8in TOPIC ONE ×2 (10:07→12:39)
[2017-03-06] MEDS ORDERED: Lidocaine 2% 20mg/ml/Epi 0.005mg/ml 20ml vial ONE ×2 (10:08→12:50)
[2017-03-06] MEDS ORDERED: Bacitracin 50000 Units Vial ONE ×2 (10:08→12:27)
[2017-03-06] MEDS ORDERED: NS Irrig 1000ml IRRIG ONE (11:20)
--- NOTE | 2017-03-06 11:43 | Pre-Procedure Note/Attestation ---
Pre-Procedure Note/Attestation Complete Prior to Procedure Planned Procedure: bilateral Procedure Narrative: Bilateral groin wound closure and buttock lesion excision Attestation I attest that I discussed the nature of the procedure; its benefits; risks and complications; and alternatives (and the risks and benefits of such alternatives ), prior to the procedure, with the patient (or the patient's legal territory service representative). I attest that, if there was a reasonable possibility of needing a blood transfusion, the patient (or the patient's legal territory service representative) was given the [facility] standardized written summary, pursuant to the [place] Blood Safety Act ([place] Health and Safety Code # 1645, as amended). I attest that I re-evaluated the patient just prior to the surgery and that there has been no change in the patient's H&P, except as documented below: RENÉE ANNE March 06, 2017 11:43
--- NOTE | 2017-03-06 11:44 | Operative Note - PDOC ---
Operative Note Operative Note Procedure: Bilateral groin wound closure and buttock lesion excision Post-op Diagnosis: same as pre-op Surgeon: Brandon Switch Box Installer: Jeremaih Anesthesia: general Specimen: yes Condition: stable Estimated Blood Loss: volume Drains: MADISON Implant(s) used?: No RENÉE ANNE March 06, 2017 11:44
[2017-03-06] MEDS ORDERED: Zolpidem 5mg tab ORAL PRN (12:15)
[2017-03-06] MEDS ORDERED: LR 1000ml 1,000 ML IVLG SCH (12:35)
[2017-03-06] MEDS ORDERED: Midazolam 2mg/2ml Inj IVP PRN (12:45)
[2017-03-06] MEDS ORDERED: DiphenhydrAMINE 50mg/ml Inj IVP PRN (12:45)
[2017-03-06] MEDS ORDERED: Metoclopramide 10mg/2ml Inj IVP PRN (12:45)
[2017-03-06] MEDS ORDERED: Meperidine 25mg/0.5ml Inj IV PRN (12:45)
[2017-03-06] MEDS ORDERED: Ketorolac 30mg Inj IV PRN (12:45)
[2017-03-06] MEDS ORDERED: PCA HYDROmorphone 1mg/ml 30 ML IV PRN ×2 (13:00→17:00)
[2017-03-06] MEDS ORDERED: Rate Change PCA 1 Each MISC PRN (13:00)
--- NOTE | 2017-03-06 14:58 | Immediate Post-Op Evaluation ---
Immediate Post-Op Evalulation Immediate Post-Op Evalulation Procedure: Debridement and closure of bilateral groin wounds Date of Evaluation: March 06, 2017 Time of Evaluation: 14:56 IV Fluids: 1200 Blood Products: none Estimated Blood Loss: 50 Urinary Output: 150 Blood Pressure Systolic: 126 Blood Pressure Diastolic: 74 Pulse Rate: 106 Respiratory Rate: 20 O2 Sat by Pulse Oximetry: 99 Temperature (Fahrenheit): 98.6 Pain Score (1-10): 2 Nausea: No Vomiting: No Complications none Patient Status: reacts, patent, extubated, none Hydration Status: adequate Drug: Ancef 1 gr. Given Within 1 Hr of Incision: Yes Time Given: 12:10 SEB MCWILLIAMS M.D. March 06, 2017 14:58
[2017-03-06] MEDS: Hydromorphone 0.5mg/0.5ml inj IVP PRN ×3 (15:19→16:37)
[2017-03-06] MEDS: PCA HYDROmorphone 1mg/ml 30 ML IV PRN (17:12)
--- NOTE | 2017-03-06 18:17 | General Progress Note ---
Assessment/Plan Problem List: (1) Abscess Assessment & Plan: s/p I+D of groin POD#1 f/u blood cx Wound cx enterococcus, change ancef to vanco Pain control Supp care Cont IV abx DVT ppx Wound care per Plastic surgery A total of 32 additional mins of time was spent above and beyond the time of the face to face visit ICD Codes: L02.91 - Cutaneous abscess, unspecified SNOMED: [id number] Subjective Date patient seen: March 06, 2017 ROS Limited/Unobtainable: No Allergies: Coded Allergies: No Known Allergies (Unverified , 03/01/17) Subjective s/p surgery. No chest pain or dyspnea, postop pain well controlled. No periop or postop complications, postop pain well controlled. Objective Last 24 Hour Vital Signs Date Time Temp Pulse Resp B/P Pulse Ox O2 Delivery O2 Flow Rate FiO2 03/06/17 18:10 97.7 03/06/17 18:09 97.7 03/06/17 18:09 97.7 03/06/17 18:08 97.7 03/06/17 18:00 20 03/06/17 17:55 97.7 114 20 115/64 99 Nasal Cannula 2.0 03/06/17 17:30 20 03/06/17 17:15 98.6 108 20 125/83 100 Nasal Cannula 3.0 03/06/17 17:12 20 03/06/17 17:00 108 20 126/80 100 Nasal Cannula 3.0 03/06/17 16:45 110 20 125/79 100 Nasal Cannula 3.0 03/06/17 16:37 110 20 125/79 100 Nasal Cannula 3.0 03/06/17 16:00 110 20 126/80 100 Nasal Cannula 3.0 03/06/17 15:45 114 20 126/80 100 Simple Mask 8.0 03/06/17 15:30 118 20 132/81 100 Simple Mask 8.0 03/06/17 15:19 117 20 129/79 100 Simple Mask 8.0 03/06/17 15:16 119 20 133/82 100 Simple Mask 8.0 03/06/17 15:06 119 20 132/80 100 Simple Mask 8.0 03/06/17 14:58 135 20 131/78 100 Simple Mask 8.0 03/06/17 14:58 106 20 99 03/06/17 14:53 140 20 131/75 100 Simple Mask 8.0 03/06/17 14:48 97.6 143 20 119/65 98 Simple Mask 8.0 03/06/17 08:00 20 03/06/17 08:00 98.4 107 20 128/75 96 Room Air 03/06/17 04:00 16 03/06/17 04:00 97.7 98 20 115/69 97 Room Air 03/06/17 00:00 17 03/05/17 20:00 18 03/05/17 20:00 97.9 100 20 122/73 96 Room Air Intake and Output 03/05/17 03/06/17 19:00 07:00 Intake Total 1345 ml 650 ml Output Total 1400 ml 1000 ml Balance -55 ml -350 ml Intake Oral 840 ml IV Total 505 ml 650 ml Output Urine Total 1400 ml 1000 ml Height (Feet): 5 Height (Inches): 11.00 Weight (Pounds): 175 Objective General: alert, cooperative, no distress, appears stated age Head: normocephalic, without obvious abnormality, atraumatic Eyes: conjunctivae/corneas clear. PERRL, EOM's intact Throat: lips, mucosa, and tongue normal. MMM Neck: supple, symmetrical, trachea midline, and no JVD Lungs: clear to auscultation bilaterally Heart: regular rate and rhythm, S1, S2 normal, no murmur, click, rub or gallop Abdomen: soft, non-tender, non-distended, bowel sounds normal; no masses or organomegaly Extremities: extremities normal, atraumatic, no cyanosis or edema Pulses: 2+ and symmetric Skin: skin color, texture, turgor normal; no rashes or lesions Neurologic: grossly normal, no focal deficits ERNESTINE JAIMES March 06, 2017 18:17
[2017-03-06] MEDS: DiphenhydrAMINE 50mg/ml Inj IVP PRN (18:35)
[2017-03-06] MEDS: D5NS 1,000 ML IV SCH (19:00)
[2017-03-06] MEDS ORDERED: Vancomycin 1.5 GM in D5W 325 ML IVPB ONE (20:00)
--- NOTE | 2017-03-06 21:51 | Operative Note - Dictated ---
DATE OF OPERATION: 03/06/2017 PREOPERATIVE DIAGNOSES: 1. Bilateral open groin wounds. 2. Open lower abdominal wound. 3. Bilateral buttock lesions. POSTOPERATIVE DIAGNOSES: 1. Bilateral open groin wounds. 2. Open lower abdominal wound. 3. Bilateral buttock lesions. PROCEDURES: 1. Preparation of lower abdominal wound for adjacent tissue transfer closure. 2. Adjacent tissue transfer closure of lower abdominal wound. 3. Preparation of left groin wound for flap closure. 4. Elevation of the medial thigh flap with readvancement closure for left groin wound. 5. Preparation of right groin wound for flap closure. 6. Readvancement and elevation of a medial thigh flap on the right for closure of right groin wound. 7. Radical excision of bilateral buttock wounds. SURGEON: Bradley Taylor M.D. CUSTOMER ACQUISITION SPECIALIST: Chastity Daniels M.D. ANESTHESIA: General. COMPLICATIONS: None. DRAINS: Three MADISON's. DISPOSITION: Stable to the recovery room. INDICATIONS FOR SURGERY: This is a 26-year-old male, who is now four days postoperative from radical excision of groin and lower abdominal tissue, who has been getting local wound care and is now ready for definitive flap closure of these wounds. In addition, there are lesions on his buttock, which required radical excision, which we will be performing as well today. DETAILS OF THE OPERATION: The patient was brought to the operating room and laid in the supine position in the operating room table. After induction of anesthesia, he was placed in lithotomy and lower extremity groin and lower abdomen were prepped and draped in a sterile and usual fashion. We first began by debriding the lower abdominal wound and preparing it for adjacent tissue transfer. This wound measured 6 x 6 cm and after debridement and irrigation with pulse lavage, the skin flaps on either side were brought together to allow for adjacent tissue transfer to be completed using #0 and 2-0 Vicryl sutures and juan pablo were used to close the skin. We then turned our attention to the bilateral groin wounds, first on the right side, the wound was debrided of nonviable tissues and following this, the medial thigh. The medial thigh flap that had been previously elevated was then further readvanced with perforators of the superficial femoral artery to blood supply to flap. The proximal and distal incisions were made on the flap and the flap was elevated the fasciocutaneous level to allow for a tension-free closure of the wound. In a similar fashion, the contralateral groin wound was debrided and prepared for flap closure. The anterior medial thigh flap that had been previously elevated had to be readvanced by releasing the proximal distal attachments of the skin. Again, perforators of the superficial femoral artery were feeding this flap and the flaps were both fully mobilized. Both wounds were fully were irrigated with pulse lavage and hemostasis was achieved. We began first on the left groin by performing advancement of the flap to the opposing edge using #0 and 2-0 Vicryl sutures over a MADISON drain and the skin was closed with a combination of juan pablo and 2-0 Prolene. On the right groin, which measured 14 x 13 centimeters despite the flap elevation, we could not achieve 100% flap closure as such there was a 5% opening left centrally to take the tension off the remainder of the closure. The flap was advanced and closed using #0 and 2-0 Vicryl sutures and juan pablo were used to close the skin with Prolene sutures and also 2-0 Prolene used to close the remaining open areas. Again, a 5% defect was left to take the tension off the remainder of the wound. At this point with the lower abdominal and groin wounds closed, we then turned our attention to the bowel bilateral buttock lesions. There are multiple growth on both buttocks with several more on the left buttock. A radical excision was performed by first using a #10 blade to perform an elliptical skin incision around the lesion all way down to the level of subcutaneous tissue. Once the incision was made, electrocautery was then used to radically excised the mass on both sides from the fundal wound bed. Given that this is a fresh wound and proximity to the anus and the possibility of infection being present, I felt it was not appropriate to perform definitive closure of these wounds after radical excision, as such these are packed with some Surgicel and dry packing. The patient was brought back to the operating room within three to five days for definitive closure of this and further excision of infected tissue by the pilonidal and upper buttock region. The patient tolerated the procedure well. There is no complications. Bradley Taylor M.D. DR: SAVANAH JOB#: [id number] CC:
[2017-03-07] VITALS: BP 118/67
[2017-03-07] MEDS: DiphenhydrAMINE 50mg/ml Inj IVP PRN ×3 (00:53→22:00)
[2017-03-07 04:00] VITALS: BP 119/70
[2017-03-07] MEDS: Vancomycin 1gm/D5W 275ml IVPB SCH ×6 (04:48→20:34)
[2017-03-07] MEDS: PCA shift volume MISC SCH ×2 (07:00→19:21)
[2017-03-07] MEDS: Lactobacillus-GG tablet ORAL SCH ×2 (08:37→18:38)
[2017-03-07] MEDS: Docusate 100mg cap ORAL SCH ×2 (08:37→21:09)
[2017-03-07] MEDS: Heparin 5000 units/ml inj SUBQ SCH ×2 (08:38→21:10)
--- NOTE | 2017-03-07 09:13 | 48 Hour Post Anesthesia Eval ---
Post Anesthesia Evaluation Procedure: Debridement and closure of bilateral groin wounds Date of Evaluation: March 07, 2017 Time of Evaluation: 06:30 Blood Pressure Systolic: 119 0: 70 Pulse Rate: 124 Respiratory Rate: 17 Temperature (Fahrenheit): 100.4 O2 Sat by Pulse Oximetry: 98 Airway: patent Nausea: No Vomiting: No Pain Intensity: 5 Hydration Status: adequate Cardiopulmonary Status: at baseline Mental Status/LOC: patient returned to baseline Post-Anesthesia Complications: 0 Follow-up care needed: N/A - further care as per primary team SANAM CASTELLANO M.D. March 07, 2017 09:12
[2017-03-07 12:00] VITALS: BP 123/75
--- NOTE | 2017-03-07 14:17 | General Progress Note ---
Assessment/Plan Problem List: (1) Abscess Assessment & Plan: s/p I+D of groin POD#2 f/u blood cx Wound cx enterococcus, change ancef to vanco Pain control Supp care Cont IV abx DVT ppx Wound care per Plastic surgery A total of 32 additional mins of time was spent above and beyond the time of the face to face visit ICD Codes: L02.91 - Cutaneous abscess, unspecified SNOMED: 344430951 Subjective Date patient seen: March 07, 2017 Time patient seen: 14:16 ROS Limited/Unobtainable: No Allergies: Coded Allergies: No Known Allergies (Unverified , 03/01/17) Subjective s/p surgery. No chest pain or dyspnea, postop pain well controlled. No periop or postop complications, postop pain well controlled. Objective Last 24 Hour Vital Signs Date Time Temp Pulse Resp B/P Pulse Ox O2 Delivery O2 Flow Rate FiO2 03/07/17 12:00 20 03/07/17 09:45 124 17 98 03/07/17 08:00 18 03/07/17 04:00 100.4 124 20 119/70 98 Nasal Cannula 2.0 03/07/17 04:00 17 03/07/17 00:00 17 03/07/17 00:00 99.1 111 20 118/67 98 Nasal Cannula 2.0 03/06/17 20:00 98.2 108 19 120/78 100 Nasal Cannula 2.0 03/06/17 20:00 18 03/06/17 18:10 97.7 03/06/17 18:09 97.7 03/06/17 18:09 97.7 03/06/17 18:08 97.7 03/06/17 18:00 20 03/06/17 17:55 97.7 114 20 115/64 99 Nasal Cannula 2.0 03/06/17 17:30 20 03/06/17 17:15 98.6 108 20 125/83 100 Nasal Cannula 3.0 03/06/17 17:12 20 03/06/17 17:00 108 20 126/80 100 Nasal Cannula 3.0 03/06/17 16:45 110 20 125/79 100 Nasal Cannula 3.0 03/06/17 16:37 110 20 125/79 100 Nasal Cannula 3.0 03/06/17 16:00 110 20 126/80 100 Nasal Cannula 3.0 03/06/17 15:45 114 20 126/80 100 Simple Mask 8.0 03/06/17 15:30 118 20 132/81 100 Simple Mask 8.0 03/06/17 15:19 117 20 129/79 100 Simple Mask 8.0 03/06/17 15:16 119 20 133/82 100 Simple Mask 8.0 03/06/17 15:06 119 20 132/80 100 Simple Mask 8.0 03/06/17 14:58 135 20 131/78 100 Simple Mask 8.0 03/06/17 14:58 106 20 99 03/06/17 14:53 140 20 131/75 100 Simple Mask 8.0 03/06/17 14:48 97.6 143 20 119/65 98 Simple Mask 8.0 Intake and Output 03/06/17 03/07/17 19:00 07:00 Intake Total 2150 ml 940 ml Output Total 225 ml 770 ml Balance 1925 ml 170 ml Intake Oral 240 ml IV Total 2150 ml 700 ml Output Urine Total 100 ml 750 ml Drainage Total 25 ml 20 ml Estimated Blood Loss 100 ml Height (Feet): 5 Height (Inches): 11.00 Weight (Pounds): 175 Objective General: alert, cooperative, no distress, appears stated age Head: normocephalic, without obvious abnormality, atraumatic Eyes: conjunctivae/corneas clear. PERRL, EOM's intact Throat: lips, mucosa, and tongue normal. MMM Neck: supple, symmetrical, trachea midline, and no JVD Lungs: clear to auscultation bilaterally Heart: regular rate and rhythm, S1, S2 normal, no murmur, click, rub or gallop Abdomen: soft, non-tender, non-distended, bowel sounds normal; no masses or organomegaly Extremities: extremities normal, atraumatic, no cyanosis or edema Pulses: 2+ and symmetric Skin: skin color, texture, turgor normal; no rashes or lesions Neurologic: grossly normal, no focal deficits ERNESTINE JAIMES March 07, 2017 14:17
[2017-03-07] MEDS: D5NS 1,000 ML IV SCH (15:00)
[2017-03-07] MEDS: PCA HYDROmorphone 1mg/ml 30 ML IV PRN (19:00)
[2017-03-07 20:00] VITALS: BP 113/58
[2017-03-08 04:30] VITALS: BP 106/61
[2017-03-08] MEDS: Vancomycin 1gm/D5W 275ml IVPB SCH ×6 (04:38→20:45)
[2017-03-08] MEDS: PCA shift volume MISC SCH ×2 (07:13→19:00)
[2017-03-08 08:00] VITALS: BP_SYST 108; BP_SYST 129; BP_DIAS 65; BP_DIAS 75
[2017-03-08] MEDS: Docusate 100mg cap ORAL SCH ×2 (09:37→20:45)
[2017-03-08] MEDS: Lactobacillus-GG tablet ORAL SCH ×2 (09:37→17:50)
[2017-03-08] MEDS: Heparin 5000 units/ml inj SUBQ SCH ×2 (09:46→20:48)
[2017-03-08] MEDS: DiphenhydrAMINE 50mg/ml Inj IVP PRN ×2 (10:20→17:49)
[2017-03-08] MEDS: D5NS 1,000 ML IV SCH (11:27)
[2017-03-08 12:00] VITALS: BP 130/65
[2017-03-08 16:00] VITALS: BP 107/58
[2017-03-08] MEDS ORDERED: Rate Change PCA 1 Each MISC PRN (16:15)
--- NOTE | 2017-03-08 17:34 | General Progress Note ---
Assessment/Plan Problem List: (1) Abscess ICD Codes: L02.91 - Cutaneous abscess, unspecified SNOMED: 932080334 (2) Hidradenitis suppurativa ICD Codes: L73.2 - Hidradenitis suppurativa SNOMED: [id number] Status: stable Assessment/Plan s/p bilateral groin infected tissue excision and flap elevation on 03/02 s/p bilateral groin wound closure and buttock lesion excision on 03/06 f/u blood cx Wound cx enterococcus, cont vanco, s/p ancef Pain control Supp care Cont IV abx DVT ppx Wound care per Plastic surgery A total of 32 additional mins of time was spent above and beyond the time of the face to face visit Subjective Date patient seen: March 08, 2017 Time patient seen: 17:31 ROS Limited/Unobtainable: No Constitutional: Reports: no symptoms HEENT: Reports: no symptoms Cardiovascular: Reports: no symptoms Respiratory: Reports: no symptoms Gastrointestinal/Abdominal: Reports: no symptoms Genitourinary: Reports: no symptoms Neurologic/Psychiatric: Reports: no symptoms Endocrine: Reports: no symptoms Hematologic/Lymphatic: Reports: no symptoms Allergies: Coded Allergies: No Known Allergies (Unverified , 03/01/17) All Systems: reviewed and negative except above Subjective Pain controlled Doing well Denies f/c, n/v, d/c, chest pain, SOB Objective Last 24 Hour Vital Signs Date Time Temp Pulse Resp B/P Pulse Ox O2 Delivery O2 Flow Rate FiO2 03/08/17 16:00 18 03/08/17 16:00 97.9 105 18 107/58 95 Room Air 03/08/17 12:00 98.4 94 18 130/65 95 Room Air 03/08/17 12:00 19 03/08/17 08:00 18 03/08/17 08:00 98.1 81 18 129/75 95 Room Air 03/08/17 08:00 99.0 106 18 108/65 96 Room Air 03/08/17 04:30 98.8 117 18 106/61 97 Room Air 03/08/17 04:00 19 03/08/17 00:00 19 03/07/17 20:00 99.0 114 18 113/58 94 Room Air 03/07/17 20:00 19 Intake and Output 03/07/17 03/08/17 19:00 07:00 Intake Total 830 ml 890 ml Output Total 1308 ml Balance 830 ml -418 ml Intake Oral 480 ml 240 ml IV Total 350 ml 650 ml Output Urine Total 1300 ml Drainage Total 8 ml Laboratory Tests 03/07/17 19:30: Vancomycin Level Trough 9.0 Height (Feet): 5 Height (Inches): 11.00 Weight (Pounds): 175 Objective General: alert, cooperative, no distress, appears stated age Head: normocephalic, without obvious abnormality, atraumatic Eyes: conjunctivae/corneas clear. PERRL, EOM's intact Throat: lips, mucosa, and tongue normal. MMM Neck: supple, symmetrical, trachea midline, and no JVD Lungs: clear to auscultation bilaterally Heart: regular rate and rhythm, S1, S2 normal, no murmur, click, rub or gallop Abdomen: soft, non-tender, non-distended, bowel sounds normal; no masses or organomegaly Extremities: extremities normal, atraumatic, no cyanosis or edema Pulses: 2+ and symmetric Skin: skin color, texture, turgor normal; no rashes or lesions Neurologic: grossly normal, no focal deficits Gail Clarke M.D. March 08, 2017 17:34
[2017-03-08] MEDS: PCA HYDROmorphone 1mg/ml 30 ML IV PRN (18:57)
[2017-03-08 20:00] VITALS: BP 114/56
[2017-03-08] MEDS ORDERED: D5NS 1000ml IV ONE (22:55)
[2017-03-09] MEDS: DiphenhydrAMINE 50mg/ml Inj IVP PRN ×4 (00:08→18:36)
[2017-03-09 04:00] VITALS: BP 108/67
[2017-03-09] MEDS: Vancomycin 1gm/D5W 275ml IVPB SCH ×6 (04:34→20:10)
[2017-03-09] MEDS: D5NS 1,000 ML IV SCH (04:34)
[2017-03-09] MEDS: PCA shift volume MISC SCH ×2 (07:00→19:00)
[2017-03-09 08:00] VITALS: BP 115/64
[2017-03-09] MEDS: Lactobacillus-GG tablet ORAL SCH ×2 (08:49→18:36)
[2017-03-09] MEDS: Docusate 100mg cap ORAL SCH ×2 (08:49→20:11)
[2017-03-09] MEDS: Heparin 5000 units/ml inj SUBQ SCH ×2 (08:51→20:13)
[2017-03-09 12:00] VITALS: BP 119/71
--- NOTE | 2017-03-09 14:14 | General Progress Note ---
Assessment/Plan Problem List: (1) Abscess Assessment & Plan: s/p I+D of groin POD#3 f/u blood cx Wound cx enterococcus, cont vanco Pain control Supp care Cont IV abx DVT ppx Wound care per Plastic surgery A total of 32 additional mins of time was spent above and beyond the time of the face to face visit ICD Codes: L02.91 - Cutaneous abscess, unspecified SNOMED: 688474285 Subjective Date patient seen: March 09, 2017 Time patient seen: 14:13 ROS Limited/Unobtainable: No Allergies: Coded Allergies: No Known Allergies (Unverified , 03/01/17) Subjective s/p surgery. No chest pain or dyspnea, postop pain well controlled. No periop or postop complications, postop pain well controlled. Objective Last 24 Hour Vital Signs Date Time Temp Pulse Resp B/P Pulse Ox O2 Delivery O2 Flow Rate FiO2 03/09/17 12:00 98.6 111 20 119/71 99 Room Air 03/09/17 09:19 97.9 03/09/17 08:00 99.0 70 20 115/64 100 Room Air 03/09/17 08:00 18 03/09/17 04:00 18 03/09/17 04:00 98.4 107 18 108/67 95 Room Air 03/09/17 00:00 18 03/08/17 20:00 99.0 108 18 114/56 96 Room Air 03/08/17 20:00 18 03/08/17 16:00 18 03/08/17 16:00 97.9 105 18 107/58 95 Room Air Intake and Output 03/08/17 03/09/17 19:00 07:00 Intake Total 850 ml 1450 ml Output Total 650 ml 960 ml Balance 200 ml 490 ml Intake Oral 250 ml 500 ml IV Total 600 ml 950 ml Output Urine Total 650 ml 825 ml Drainage Total 135 ml Height (Feet): 5 Height (Inches): 11.00 Weight (Pounds): 175 Objective General: alert, cooperative, no distress, appears stated age Head: normocephalic, without obvious abnormality, atraumatic Eyes: conjunctivae/corneas clear. PERRL, EOM's intact Throat: lips, mucosa, and tongue normal. MMM Neck: supple, symmetrical, trachea midline, and no JVD Lungs: clear to auscultation bilaterally Heart: regular rate and rhythm, S1, S2 normal, no murmur, click, rub or gallop Abdomen: soft, non-tender, non-distended, bowel sounds normal; no masses or organomegaly Extremities: extremities normal, atraumatic, no cyanosis or edema Pulses: 2+ and symmetric Skin: skin color, texture, turgor normal; no rashes or lesions Neurologic: grossly normal, no focal deficits ERNESTINE JAIMES March 09, 2017 14:14
[2017-03-09] MEDS ORDERED: Tubing IV Secondary IV ONE (15:18)
[2017-03-09] MEDS ORDERED: D5NS 1000ml IV ONE (15:19)
[2017-03-09 16:00] VITALS: BP 123/68
[2017-03-09 18:00] VITALS: BP 123/68
[2017-03-09] MEDS: PCA HYDROmorphone 1mg/ml 30 ML IV PRN (18:37)
[2017-03-09 20:00] VITALS: BP 120/64
[2017-03-10] VITALS: BP 112/64
[2017-03-10] MEDS: DiphenhydrAMINE 50mg/ml Inj IVP PRN ×4 (00:51→22:05)
[2017-03-10 04:00] VITALS: BP 112/61
[2017-03-10] MEDS: D5NS 1,000 ML IV SCH (04:40)
[2017-03-10] MEDS: Vancomycin 1gm/D5W 275ml IVPB SCH ×6 (04:40→20:00)
[2017-03-10] MEDS: PCA shift volume MISC SCH ×2 (07:00→19:00)
[2017-03-10 08:00] VITALS: BP 113/66
[2017-03-10] MEDS: Docusate 100mg cap ORAL SCH ×2 (09:00→21:00)
[2017-03-10] MEDS: Lactobacillus-GG tablet ORAL SCH ×2 (09:00→18:00)
[2017-03-10] MEDS: Heparin 5000 units/ml inj SUBQ SCH ×2 (09:02→21:00)
[2017-03-10 12:00] VITALS: BP 112/64
--- NOTE | 2017-03-10 14:36 | General Progress Note ---
Assessment/Plan Problem List: (1) Abscess ICD Codes: L02.91 - Cutaneous abscess, unspecified SNOMED: [id number] (2) Hidradenitis suppurativa ICD Codes: L73.2 - Hidradenitis suppurativa SNOMED: 08969976 Status: stable Assessment/Plan s/p bilateral groin infected tissue excision and flap elevation on 03/02 s/p bilateral groin wound closure and buttock lesion excision on 03/06 f/u blood cx--ngtd Wound cx enterococcus, cont vanco, s/p ancef Pain control Supp care Cont IV abx DVT ppx Wound care per Plastic surgery Plan for OR Sunday for washout as wounds have dehisced further per plastics A total of 31min of additional time was spent above and beyond the time of the face to face visit Subjective Date patient seen: March 10, 2017 Time patient seen: 14:36 Constitutional: Reports: no symptoms HEENT: Reports: no symptoms Cardiovascular: Reports: no symptoms Respiratory: Reports: no symptoms Gastrointestinal/Abdominal: Reports: no symptoms Genitourinary: Reports: no symptoms Neurologic/Psychiatric: Reports: no symptoms Endocrine: Reports: no symptoms Hematologic/Lymphatic: Reports: no symptoms Allergies: Coded Allergies: No Known Allergies (Unverified , 03/01/17) All Systems: reviewed and negative except above Subjective Pain controlled Doing well Denies f/c, n/v, d/c, chest pain, SOB Objective Last 24 Hour Vital Signs Date Time Temp Pulse Resp B/P Pulse Ox O2 Delivery O2 Flow Rate FiO2 03/10/17 12:00 97.4 102 20 112/64 97 Room Air 03/10/17 08:00 97.3 100 20 113/66 96 Room Air 03/10/17 05:10 98.0 03/10/17 04:47 18 03/10/17 04:00 97.3 96 17 112/61 96 Room Air 03/10/17 00:00 18 03/10/17 00:00 97.9 106 18 112/64 97 Room Air 03/09/17 20:00 98.8 107 18 120/64 98 Room Air 03/09/17 19:07 98.0 03/09/17 16:00 18 03/09/17 16:00 98.0 74 20 123/68 98 Room Air Intake and Output 03/09/17 03/10/17 19:00 07:00 Intake Total 315 ml 1515 ml Output Total 1300 ml 1902 ml Balance -985 ml -387 ml Intake Oral 240 ml 240 ml IV Total 75 ml 975 ml Other 300 ml Output Urine Total 1300 ml 1775 ml Drainage Total 127 ml Height (Feet): 5 Height (Inches): 11.00 Weight (Pounds): 175 Objective General: alert, cooperative, no distress, appears stated age Head: normocephalic, without obvious abnormality, atraumatic Eyes: conjunctivae/corneas clear. PERRL, EOM's intact Throat: lips, mucosa, and tongue normal. MMM Neck: supple, symmetrical, trachea midline, and no JVD Lungs: clear to auscultation bilaterally Heart: regular rate and rhythm, S1, S2 normal, no murmur, click, rub or gallop Abdomen: soft, non-tender, non-distended, bowel sounds normal; no masses or organomegaly Extremities: extremities normal, atraumatic, no cyanosis or edema Pulses: 2+ and symmetric Skin: skin color, texture, turgor normal; no rashes or lesions Neurologic: grossly normal, no focal deficits Gail Clarke M.D. March 10, 2017 14:36
[2017-03-10] MEDS ORDERED: DiphenhydrAMINE 50mg/ml Inj IVP PRN (15:15)
[2017-03-10 16:00] VITALS: BP 117/64
[2017-03-10] MEDS ORDERED: Naloxone 0.4mg/ml Inj IVP PRN (18:45)
[2017-03-10] MEDS ORDERED: Rate Change PCA 1 Each MISC PRN (18:45)
[2017-03-10] MEDS: PCA HYDROmorphone 1mg/ml 30 ML IV PRN (18:56)
[2017-03-10 20:00] VITALS: BP 116/63
[2017-03-11] VITALS: BP 118/64
[2017-03-11] MEDS: D5NS 1,000 ML IV SCH ×2 (01:12→18:59)
[2017-03-11 04:00] VITALS: BP_SYST 106; BP_SYST 118; BP_DIAS 57; BP_DIAS 77
[2017-03-11] MEDS: Vancomycin 1gm/D5W 275ml IVPB SCH ×6 (04:29→20:27)
[2017-03-11] MEDS: DiphenhydrAMINE 50mg/ml Inj IVP PRN ×4 (04:36→23:02)
[2017-03-11] MEDS: PCA shift volume MISC SCH ×2 (07:00→19:00)
[2017-03-11 08:00] VITALS: BP 118/63
[2017-03-11 09:18] LABS: BASOPHILS % (AUTO) 0.8 % (0.0-2.0); EOSINOPHILS % (AUTO) 7.8 % (0.0-3.0); MEAN CORPUSCULAR HEMOGLOBIN 27.2 PG (27.0-31.0); MEAN CORPUSCULAR HGB CONC 32.3 G/DL (32.0-36.0); MEAN CORPUSCULAR VOLUME 84 FL (80-99); MEAN PLATELET VOLUME 4.8 FL (6.5-10.1); MONOCYTES % (AUTO) 7.7 % (1.0-10.0); NEUTROPHILS % (AUTO) 73.7 % (45.0-75.0); PLATELET COUNT 454 K/UL (150-450); RED BLOOD COUNT 3.69 M/UL (4.70-6.10); RED CELL DISTRIBUTION WIDTH 12.9 % (11.6-14.8); WHITE BLOOD COUNT 10.3 K/UL (4.8-10.8)
[2017-03-11 09:40] LABS: ALANINE AMINOTRANSFERASE 17 U/L (3-41); ALBUMIN/GLOBULIN RATIO 0.4 (1.0-2.7); ANION GAP 14 (5-15); ASPARTATE AMINO TRANSFERASE 20 U/L (5-40); CALCIUM 8.2 mg/dL (8.6-10.2); CARBON DIOXIDE 26 mEQ/L (20-30); CHLORIDE 95 mEQ/L (98-107); CREATININE 0.5 mg/dL (0.7-1.2); GLOMERULAR FILTRATION RATE > 60 mL/min (>60); HEMOLYSIS 0; POTASSIUM 3.6 mEQ/L (3.4-4.9); SODIUM 135 mEQ/L (135-145); TOTAL PROTEIN 6.4 g/dL (6.6-8.7)
--- NOTE | 2017-03-11 09:48 | General Progress Note ---
Progress Note Progress Note Pt seen and examined. He is now POR# 5 from closure of groin wounds. R groin wound has dehisced further. Will plan on doing Dakins dressing changes to the wounds. Recommend OR washout and partial reclosure this week. RENÉE Young MD March 11, 2017 09:48
[2017-03-11] MEDS: Docusate 100mg cap ORAL SCH ×2 (10:15→20:56)
[2017-03-11] MEDS: Lactobacillus-GG tablet ORAL SCH ×2 (10:15→18:00)
[2017-03-11] MEDS: Heparin 5000 units/ml inj SUBQ SCH ×2 (10:17→20:57)
[2017-03-11 12:00] VITALS: BP 117/72
--- NOTE | 2017-03-11 15:23 | General Progress Note ---
Assessment/Plan Problem List: (1) Abscess ICD Codes: L02.91 - Cutaneous abscess, unspecified SNOMED: 752089256 (2) Hidradenitis suppurativa ICD Codes: L73.2 - Hidradenitis suppurativa SNOMED: 59298057 Status: progressing Assessment/Plan s/p bilateral groin infected tissue excision and flap elevation on 03/02 s/p bilateral groin wound closure and buttock lesion excision on 03/06 f/u blood cx--ngtd Wound cx enterococcus, cont vanco, s/p ancef Pain control Pain mgmt consulted for assistance Supp care Cont IV abx DVT ppx Wound care per Plastic surgery Plan for OR Sunday for washout as wounds have dehisced further per plastics A total of 31min of additional time was spent above and beyond the time of the face to face visit Subjective Date patient seen: March 11, 2017 Time patient seen: 15:23 ROS Limited/Unobtainable: No Constitutional: Reports: no symptoms HEENT: Reports: no symptoms Cardiovascular: Reports: no symptoms Respiratory: Reports: no symptoms Gastrointestinal/Abdominal: Reports: no symptoms Genitourinary: Reports: no symptoms Neurologic/Psychiatric: Reports: no symptoms Endocrine: Reports: no symptoms Hematologic/Lymphatic: Reports: no symptoms Allergies: Coded Allergies: No Known Allergies (Unverified , 03/01/17) All Systems: reviewed and negative except above Subjective Having some uncontrolled pain Doing well otherwise Denies f/c, n/v, d/c, chest pain, SOB Objective Last 24 Hour Vital Signs Date Time Temp Pulse Resp B/P Pulse Ox O2 Delivery O2 Flow Rate FiO2 03/11/17 12:00 97.5 93 19 117/72 96 Room Air 03/11/17 12:00 18 03/11/17 08:00 98.2 96 19 118/63 98 Room Air 03/11/17 08:00 18 03/11/17 06:41 98.2 03/11/17 04:00 18 03/11/17 04:00 97.3 77 18 106/57 95 Room Air 03/11/17 00:00 97.7 96 18 118/64 97 Room Air 03/11/17 00:00 18 03/10/17 20:00 98.2 99 18 116/63 98 Room Air 03/10/17 20:00 18 03/10/17 19:26 98.2 03/10/17 18:59 18 03/10/17 16:00 98.2 101 20 117/64 97 Room Air 03/10/17 16:00 18 Intake and Output 03/10/17 03/11/17 19:00 07:00 Intake Total 50 ml 1500 ml Output Total 1600 ml 3405 ml Balance -1550 ml -1905 ml Intake Oral 500 ml IV Total 50 ml 1000 ml Output Urine Total 1600 ml 3350 ml Drainage Total 55 ml Laboratory Tests 03/11/17 08:50: White Blood Count 10.3, Red Blood Count 3.69L, Hemoglobin 10.0L, Hematocrit 31.1L, Mean Corpuscular Volume 84, Mean Corpuscular Hemoglobin 27.2, Mean Corpuscular Hemoglobin Concent 32.3, Red Cell Distribution Width 12.9, Platelet Count 454H, Mean Platelet Volume 4.8L, Neutrophils (%) (Auto) 73.7, Lymphocytes (%) (Auto) 10.0L, Monocytes (%) (Auto) 7.7, Eosinophils (%) (Auto) 7.8H, Basophils (%) (Auto) 0.8, Sodium Level 135, Potassium Level 3.6, Chloride Level 95L, Carbon Dioxide Level 26, Anion Gap 14, Blood Urea Nitrogen 6L, Creatinine 0.5L, Estimat Glomerular Filtration Rate > 60, Glucose Level 126H, Calcium Level 8.2L, Total Bilirubin 0.2, Aspartate Amino Transf (AST/SGOT) 20, Alanine Aminotransferase (ALT/SGPT) 17, Alkaline Phosphatase 66, Total Protein 6.4L, Albumin 2.1L, Globulin 4.3, Albumin/Globulin Ratio 0.4L Height (Feet): 5 Height (Inches): 11.00 Weight (Pounds): 175 Objective General: alert, cooperative, no distress, appears stated age Head: normocephalic, without obvious abnormality, atraumatic Eyes: conjunctivae/corneas clear. PERRL, EOM's intact Throat: lips, mucosa, and tongue normal. MMM Neck: supple, symmetrical, trachea midline, and no JVD Lungs: clear to auscultation bilaterally Heart: regular rate and rhythm, S1, S2 normal, no murmur, click, rub or gallop Abdomen: soft, non-tender, non-distended, bowel sounds normal; no masses or organomegaly Extremities: extremities normal, atraumatic, no cyanosis or edema Pulses: 2+ and symmetric Skin: skin color, texture, turgor normal; no rashes or lesions Neurologic: grossly normal, no focal deficits Gail Clarke M.D. March 11, 2017 15:23
[2017-03-11 16:00] VITALS: BP 110/57
[2017-03-11 20:00] VITALS: BP 119/69
[2017-03-11] MEDS: PCA HYDROmorphone 1mg/ml 30 ML IV PRN (21:38)
[2017-03-12] VITALS: BP 115/66
[2017-03-12 04:00] VITALS: BP 116/63
[2017-03-12] MEDS: Vancomycin 1250mg/D5W 275ml IVPB SCH ×6 (04:00→20:17)
[2017-03-12] MEDS: DiphenhydrAMINE 50mg/ml Inj IVP PRN ×3 (05:08→22:50)
[2017-03-12] MEDS: PCA shift volume MISC SCH ×2 (07:09→19:03)
[2017-03-12 08:00] VITALS: BP 115/66
[2017-03-12] MEDS ORDERED: Fleet's Enema 133ml RECTAL ONE (08:00)
--- NOTE | 2017-03-12 08:34 | Consultation ---
History of Present Illness General Date patient seen: March 12, 2017 Present Illness Allergies: Coded Allergies: No Known Allergies (Unverified , 03/01/17) Medication History Scheduled Duloxetine Hcl* (Cymbalta*), 60 MG ORAL DAILY, (Reported) Scheduled PRN Hydrocodone/Acetaminophen (Hydrocodon-Acetaminophn 10-325), 1 TAB ORAL BID PRN for For Pain, (Reported) Patient History Healthcare decision maker pt A&Ox4 Resuscitation status Advanced Directive on File Physical Exam Last 24 Hour Vital Signs Date Time Temp Pulse Resp B/P Pulse Ox O2 Delivery O2 Flow Rate FiO2 03/12/17 08:00 98.2 94 20 115/66 97 Room Air 03/12/17 04:00 98.1 90 18 116/63 97 Room Air 03/12/17 04:00 18 03/12/17 00:00 97.9 89 18 115/66 97 Room Air 03/12/17 00:00 18 03/11/17 20:00 18 03/11/17 20:00 99.1 98 18 119/69 99 Room Air 03/11/17 16:00 18 03/11/17 16:00 98.1 95 20 110/57 96 Room Air 03/11/17 15:20 97.5 03/11/17 12:00 97.5 93 19 117/72 96 Room Air 03/11/17 12:00 18 Intake and Output 03/11/17 03/12/17 19:00 07:00 Intake Total 575.0 ml Output Total 45 ml 1835 ml Balance -45 ml -1260.0 ml IV Total 575.0 ml Output Urine Total 1800 ml Drainage Total 45 ml 35 ml Laboratory Tests Test 03/11/17 08:50 03/11/17 19:05 White Blood Count 10.3 K/UL (4.8-10.8) Red Blood Count 3.69 M/UL (4.70-6.10) L Hemoglobin 10.0 G/DL (14.2-18.0) L Hematocrit 31.1 % (42.0-52.0) L Mean Corpuscular Volume 84 FL (80-99) Mean Corpuscular Hemoglobin 27.2 PG (27.0-31.0) Mean Corpuscular Hemoglobin Concent 32.3 G/DL (32.0-36.0) Red Cell Distribution Width 12.9 % (11.6-14.8) Platelet Count 454 K/UL (150-450) H Mean Platelet Volume 4.8 FL (6.5-10.1) L Neutrophils (%) (Auto) 73.7 % (45.0-75.0) Lymphocytes (%) (Auto) 10.0 % (20.0-45.0) L Monocytes (%) (Auto) 7.7 % (1.0-10.0) Eosinophils (%) (Auto) 7.8 % (0.0-3.0) H Basophils (%) (Auto) 0.8 % (0.0-2.0) Sodium Level 135 mEQ/L (135-145) Potassium Level 3.6 mEQ/L (3.4-4.9) Chloride Level 95 mEQ/L (98-107) L Carbon Dioxide Level 26 mEQ/L (20-30) Anion Gap 14 (5-15) Blood Urea Nitrogen 6 mg/dL (7-23) L Creatinine 0.5 mg/dL (0.7-1.2) L Estimat Glomerular Filtration Rate > 60 mL/min (>60) Glucose Level 126 mg/dL (74-106) H Calcium Level 8.2 mg/dL (8.6-10.2) L Total Bilirubin 0.2 mg/dL (0.0-1.2) Aspartate Amino Transf (AST/SGOT) 20 U/L (5-40) Alanine Aminotransferase (ALT/SGPT) 17 U/L (3-41) Alkaline Phosphatase 66 U/L (40-129) Total Protein 6.4 g/dL (6.6-8.7) L Albumin 2.1 g/dL (3.5-5.2) L Globulin 4.3 g/dL Albumin/Globulin Ratio 0.4 (1.0-2.7) L Vancomycin Level Trough 7.9 ug/mL (5.0-12.0) Height (Feet): 5 Height (Inches): 11.00 Weight (Pounds): 175 Medications Current Medications Medications (Trade) Dose Ordered Sig/Kevin Route PRN Reason Start Time Stop Time Status Last Admin Dose Admin Acetaminophen (Tylenol) 650 mg Q4H PRN ORAL FEVER>100.5 03/06/17 11:45 04/05/17 11:44 Acetaminophen/ Hydrocodone Bitart ([place] 10/325) 1 ea Q6H ORAL 03/12/17 08:30 03/19/17 08:29 Al Hydroxide/Mg Hydroxide (Mylanta II) 30 ml Q6H PRN ORAL dyspepsia 03/01/17 18:45 03/31/17 18:44 Bisacodyl (Dulcolax) 10 mg HSPRN PRN RECTAL Constipation 03/01/17 18:45 03/31/17 18:44 Dextrose (Dextrose 50%) STAT PRN IV Hypoglycemia 03/01/17 18:45 03/31/17 18:44 Dextrose/Sodium Chloride (D5ns) 1,000 ml @ 50 mls/hr Q20H IV 03/01/17 19:00 03/31/17 18:59 03/11/17 18:59 Diphenhydramine HCl (Benadryl) 50 mg Q6H PRN IVP Itching unrelieved by25mg dose 03/10/17 16:00 04/09/17 15:59 03/12/17 05:08 Docusate Sodium (Colace) 100 mg EVERY 12 HOURS ORAL 03/01/17 21:00 03/31/17 20:59 03/11/17 20:56 Gabapentin (Neurontin) 300 mg THREE TIMES A DAY ORAL 03/12/17 09:00 04/11/17 08:59 UNV Heparin Sodium (Porcine) (Heparin 5000 units/ml) 5,000 units EVERY 12 HOURS SUBQ 03/06/17 21:00 04/05/17 20:59 03/11/17 20:57 Hydromorphone HCl (Dilaudid) 2 mg Q4H PRN IVP Moderate Pain (Pain Scale 4-6) 03/12/17 10:45 03/14/17 23:59 UNV Hydromorphone HCl (STARS SPECIALIST Dilaudid) 30 ml @ 0 mls/hr Q24H PRN IV For Pain 03/12/17 18:45 03/14/17 23:59 UNV Lactobacillus Acidophilus (Culturelle) 1 tab TWICE A DAY ORAL 03/02/17 09:00 04/01/17 08:59 03/11/17 18:00 Magnesium Hydroxide (Mom) 30 ml HSPRN PRN ORAL Constipation 03/01/17 18:45 03/31/17 18:44 Miscellaneous Medication (STARS SPECIALIST Rate Change) 1 ea DAILYPRN PRN MISC rate change 03/12/17 08:30 03/14/17 23:59 UNV Miscellaneous Medication (STARS SPECIALIST shift volume) 1 ea Q12HR@0700,1900 MISC 03/12/17 19:00 03/14/17 23:59 UNV Naloxone HCl (Narcan) 0.1 mg PRN PRN IV SEE PROTOCOL 03/09/17 16:45 04/08/17 14:05 Naloxone HCl (Narcan) 0.1 mg Q1M PRN IVP RR<10/min OR SBP<90 mmHg 03/12/17 08:27 03/14/17 23:59 UNV Polyethylene Glycol (Miralax) 17 gm HSPRN PRN ORAL Constipation 03/01/17 18:45 03/31/17 18:44 Sennosides 17.2 mg 17.2 mg BEDTIME ORAL 03/11/17 21:00 04/10/17 20:59 03/11/17 20:56 Vancomycin HCl (Vanco rx to dose) 1 ea DAILY PRN MISC Per rx protocol 03/06/17 18:15 04/05/17 18:14 Vancomycin HCl 1.25 gm/Dextrose 275 ml @ 183.333 mls/hr Q8H IVPB 03/12/17 04:00 03/17/17 03:59 03/12/17 04:00 Zolpidem Tartrate (Ambien) 5 mg DAILYPRN PRN ORAL Insomnia 03/06/17 12:15 04/05/17 12:14 03/11/17 02:19 Assessment/Plan Assessment/Plan (1) Hidradenitis Suppurativa (2) Abscess (3) S/p bilateral groin infected tissue excision and flap elevation (4) S/p bilateral groin wound closure and buttock lesion excision (5) Bilateral groin pain Seen dictated MARINA PENG March 12, 2017 08:34
[2017-03-12] MEDS ORDERED: PCA HYDROmorphone 1mg/ml 30 ML IV PRN (09:00)
[2017-03-12] MEDS ORDERED: Rate Change PCA 1 Each MISC PRN (09:00)
[2017-03-12] MEDS ORDERED: Naloxone 0.4mg/ml Inj IVP PRN (09:00)
[2017-03-12] MEDS: Docusate 100mg cap ORAL SCH ×2 (09:20→20:17)
[2017-03-12] MEDS: Lactobacillus-GG tablet ORAL SCH ×2 (09:20→18:27)
[2017-03-12] MEDS: Heparin 5000 units/ml inj SUBQ SCH ×3 (09:22→20:05)
[2017-03-12] MEDS: Norco 10mg/325mg tab ORAL SCH ×3 (09:42→20:19)
[2017-03-12 12:00] VITALS: BP 115/67
[2017-03-12 13:51] LABS: MEAN CORPUSCULAR HEMOGLOBIN 27.2 PG (27.0-31.0); MEAN CORPUSCULAR HGB CONC 32.4 G/DL (32.0-36.0); MEAN CORPUSCULAR VOLUME 84 FL (80-99); MEAN PLATELET VOLUME 4.5 FL (6.5-10.1); PLATELET COUNT 587 K/UL (150-450); RED BLOOD COUNT 4.14 M/UL (4.70-6.10); WHITE BLOOD COUNT 15.5 K/UL (4.8-10.8)
[2017-03-12] MEDS ORDERED: D5NS 1,000 ML IV ONE (14:00)
[2017-03-12 14:06] LABS: ANION GAP 14 (5-15); CALCIUM 8.7 mg/dL (8.6-10.2); CARBON DIOXIDE 26 mEQ/L (20-30); CHLORIDE 93 mEQ/L (98-107); CREATININE 0.6 mg/dL (0.7-1.2); GLOMERULAR FILTRATION RATE > 60 mL/min (>60); HEMOLYSIS 3; POTASSIUM 4.1 mEQ/L (3.4-4.9); SODIUM 133 mEQ/L (135-145)
[2017-03-12 14:16] LABS: BAND NEUTROPHILS % (MANUAL) 0 % (0-8); BASOPHILS % (MANUAL) 0 % (0-2); EOSINOPHILS % (MANUAL) 3 % (0-3); HYPOCHROMASIA 1+; LYMPHOCYTES % (MANUAL) 2 % (20-45); NEUTROPHILS % (MANUAL) 92 % (45-75); PLATELET ESTIMATE INCREASED; PLATELET MORPHOLOGY NORMAL; TOTAL CELLS COUNTED 100
[2017-03-12] MEDS: D5NS 1,000 ML IV SCH (15:25)
[2017-03-12 16:00] VITALS: BP 109/48
[2017-03-12] MEDS ORDERED: D5NS 1000ml IV ONE (17:55)
[2017-03-12] MEDS ORDERED: Tubing IV Secondary IV ONE (17:55)
--- NOTE | 2017-03-12 18:16 | General Progress Note ---
Assessment/Plan Problem List: (1) Abscess Assessment & Plan: s/p I+D of groin Check UA to r/u UTI Alonzo in WBC likely wound related, will re-evaluate after further debridement surgery, d/w plastic surgery EKG/duplex neg f/u blood cx Wound cx enterococcus, cont vanco Pain control Supp care Cont IV abx DVT ppx Wound care per Plastic surgery A total of 32 additional mins of time was spent above and beyond the time of the face to face visit ICD Codes: L02.91 - Cutaneous abscess, unspecified SNOMED: 054799129 Subjective Date patient seen: March 12, 2017 Time patient seen: 18:14 ROS Limited/Unobtainable: No Allergies: Coded Allergies: No Known Allergies (Unverified , 03/01/17) Subjective s/p surgery. No chest pain or dyspnea, postop pain well controlled. No periop or postop complications, postop pain well controlled. Had episode of tachycardia, asymptomatic, BP normal, occurred after valsalva after heavy BM, pt feels better now, HR down to 90s, given NS bolus Objective Last 24 Hour Vital Signs Date Time Temp Pulse Resp B/P Pulse Ox O2 Delivery O2 Flow Rate FiO2 03/12/17 16:00 19 03/12/17 16:00 99.1 110 20 109/48 98 Room Air 03/12/17 12:00 97.7 121 20 115/67 98 Room Air 03/12/17 12:00 20 03/12/17 08:00 98.2 94 20 115/66 97 Room Air 03/12/17 08:00 19 03/12/17 04:00 98.1 90 18 116/63 97 Room Air 03/12/17 04:00 18 03/12/17 00:00 97.9 89 18 115/66 97 Room Air 03/12/17 00:00 18 03/11/17 20:00 18 03/11/17 20:00 99.1 98 18 119/69 99 Room Air Intake and Output 03/11/17 03/12/17 19:00 07:00 Intake Total 625.0 ml Output Total 45 ml 1835 ml Balance -45 ml -1210.0 ml IV Total 625.0 ml Output Urine Total 1800 ml Drainage Total 45 ml 35 ml Laboratory Tests 03/11/17 19:05: Vancomycin Level Trough 7.9 03/12/17 13:45: White Blood Count 15.5#H, Red Blood Count 4.14L, Hemoglobin 11.3L, Hematocrit 34.8L, Mean Corpuscular Volume 84, Mean Corpuscular Hemoglobin 27.2, Mean Corpuscular Hemoglobin Concent 32.4, Red Cell Distribution Width 13.0, Platelet Count 587H, Mean Platelet Volume 4.5L, Neutrophils (%) (Auto) , Lymphocytes (%) (Auto) , Monocytes (%) (Auto) , Eosinophils (%) (Auto) , Basophils (%) (Auto) , Differential Total Cells Counted 100, Neutrophils % (Manual) 92H, Lymphocytes % (Manual) 2L, Monocytes % (Manual) 3, Eosinophils % (Manual) 3, Basophils % ( Manual) 0, Band Neutrophils 0, Platelet Estimate IncreasedH, Platelet Morphology Normal, Hypochromasia 1+, Sodium Level 133L, Potassium Level 4.1, Chloride Level 93L, Carbon Dioxide Level 26, Anion Gap 14, Blood Urea Nitrogen 6L, Creatinine 0.6L, Estimat Glomerular Filtration Rate > 60, Glucose Level 147H , Calcium Level 8.7 Height (Feet): 5 Height (Inches): 11.00 Weight (Pounds): 175 Objective General: alert, cooperative, no distress, appears stated age Head: normocephalic, without obvious abnormality, atraumatic Eyes: conjunctivae/corneas clear. PERRL, EOM's intact Throat: lips, mucosa, and tongue normal. MMM Neck: supple, symmetrical, trachea midline, and no JVD Lungs: clear to auscultation bilaterally Heart: regular rate and rhythm, S1, S2 normal, no murmur, click, rub or gallop Abdomen: soft, non-tender, non-distended, bowel sounds normal; no masses or organomegaly Extremities: extremities normal, atraumatic, no cyanosis or edema Pulses: 2+ and symmetric Skin: skin color, texture, turgor normal; no rashes or lesions Neurologic: grossly normal, no focal deficits ERNESTINE JAIMES March 12, 2017 18:16
[2017-03-12 20:00] VITALS: BP 106/61
[2017-03-13] VITALS (16 sets, daily range): BP systolic 104–144; BP diastolic 57–75
--- NOTE | 2017-03-13 00:15 | Consultation ---
DATE OF CONSULTATION: 03/12/2017 PAIN MANAGEMENT CONSULTATION CONSULTING PHYSICIAN: Katheryn Alvarado M.D. REFERRING PHYSICIAN: Tam Krause M.D. PHYSICIAN INSPECTOR PACKAGER: Alejandro Whitman CHIEF COMPLAINT: Bilateral groin pain. HISTORY OF PRESENT ILLNESS: The patient is a 26-year-old male, who is being seen on the Med/Surg floor of [facility] for initial comprehensive pain management consultation. The patient is reporting that he has been having bilateral groin pain due to abscess and necrotic wound and caused hidradenitis suppurativa, is status post bilateral groin infected tissue excision and flap elevation and closure and buttock lesion excision now complaining of pain rating it at 10/10, it is worse and burning sharp pain. The patient as an outpatient is taking Crivitz 25 mg 2 tablets daily, found to have dehiscence of the right groin may be going for surgery again with Dr. Albright, who placed on a MASTICATOR Dilaudid 0.4 mg lockout interval 6 minutes having using 19 mg in the last 24 hours with Dilaudid 2 mg IV for breakthrough pain. Due to his uncontrolled pain, we were consulted so that he would have adequate control while here in the hospital. PAST MEDICAL HISTORY: Hidradenitis suppurativa. PAST SURGICAL HISTORY: Reconstruction surgery in the bilateral armpit due to hidradenitis suppurativa. SOCIAL HISTORY: Denies smoking, drinking, or drug abuse. ALLERGIES: No known drug allergies. MEDICATIONS: Cymbalta and hydrocodone. REVIEW OF SYSTEMS: Denies rash, fever, chills, sweating, dizziness, drowsiness, blurred vision, sore throat, and change in his weight. No shortness of breath or chest pain. No nausea, vomiting, diarrhea or blood in the stool or urine. No bowel or bladder incontinence. No dysuria. He is complaining of bilateral groin pain. PHYSICAL EXAMINATION: GENERAL: Alert, awake, and oriented x3. VITAL SIGNS: Blood pressure is 115/65, heart rate 94, oxygen saturation is 92%, respirations 20, and temperature is 98 degrees Fahrenheit. Height is 5 feet 11 inches and weight is 125 pounds. HEENT: PERRLA. NECK: Range of motion is full in all directions. No tenderness. No adenopathy. LUNGS: Clear. HEART: Regular. ABDOMEN: Benign. BACK: Range of motion is decreased due to the patient's condition with tenderness to paraspinal muscles. No tenderness to trapezius or rhomboid muscles. EXTREMITIES: Upper extremity range of motion is full in all direction. Motor is intact. No cyanosis. No clubbing. No edema. Sensory is intact. Reflexes are not obtainable. Lower extremity range of motion is decreased due to the patient's condition. Motor is intact. No lose bandages noted and bilateral groin tenderness to palpation. Sensory is intact. No adenopathy. ASSESSMENT AND PLAN: This is a 26-year-old male with hidradenitis suppurativa, abscess, status post bilateral groin infected tissue excision and flap elevation with wound closure and buttock lesion excision and bilateral groin pain. The patient will be continued on the MASTICATOR Dilaudid 2 mg IV push as needed for severe pain. He will be started on Crivitz 10/325 mg every 6 hours as needed around the clock and hold for sedation and Neurontin 300 mg tablet 3 times a day. The patient was discussed with Dr. Alvarado and Dr. Alvarado concurred. We will follow the patient. Thank you very much for the courtesy of this consultation. Katheryn Alvarado M.D. QUOC Whitman DR: ABHAY JOB#: [id number] CC: NURY
[2017-03-13] MEDS: Norco 10mg/325mg tab ORAL SCH ×4 (02:23→20:32)
[2017-03-13] MEDS: Vancomycin 1250mg/D5W 275ml IVPB SCH ×6 (04:54→20:56)
[2017-03-13] MEDS: DiphenhydrAMINE 50mg/ml Inj IVP PRN ×2 (05:27→18:20)
[2017-03-13] MEDS: PCA shift volume MISC SCH ×2 (07:00→19:09)
--- NOTE | 2017-03-13 08:51 | General Progress Note ---
Assessment/Plan Assessment/Plan (1) Hidradenitis Suppurativa (2) Abscess (3) S/p bilateral groin infected tissue excision and flap elevation (4) S/p bilateral groin wound closure and buttock lesion excision (5) Bilateral groin pain Pt will be continued on ERCO MACHINE OPERATOR Dilaudid, Dilaudid IVP, Neurontin and Brusly. The patient was discussed with Dr. Alvarado and Dr. Alvarado concurred. Subjective Date patient seen: March 13, 2017 Time patient seen: 07:00 - am Allergies: Coded Allergies: No Known Allergies (Unverified , 03/01/17) Subjective REVIEW OF SYSTEMS: Denies rash, fever, chills, sweating, dizziness, drowsiness, blurred vision, sore throat, and change in his weight. No shortness of breath or chest pain. No nausea, vomiting, diarrhea or blood in the stool or urine. No bowel or bladder incontinence. No dysuria. He is complaining of bilateral groin pain. SUBJECTIVE: Patient is doing well and pain is better controlled. He rates a 5/10 using 9mg of the ERCO MACHINE OPERATOR Dilaudid in the last 24 hrs. He is receiving the Brusly JUAN PABLO. Patient is scheduled for surgery barring no complication. Objective Last 24 Hour Vital Signs Date Time Temp Pulse Resp B/P Pulse Ox O2 Delivery O2 Flow Rate FiO2 03/13/17 08:00 97.0 99 20 107/63 98 Room Air 03/13/17 08:00 20 03/13/17 04:00 16 03/13/17 04:00 97.9 96 18 107/63 97 Room Air 03/13/17 00:00 97.2 93 18 109/60 98 Room Air 03/13/17 00:00 17 03/12/17 20:00 98.1 92 18 106/61 97 Room Air 03/12/17 20:00 16 03/12/17 16:00 19 03/12/17 16:00 99.1 110 20 109/48 98 Room Air 03/12/17 12:00 97.7 121 20 115/67 98 Room Air 03/12/17 12:00 20 Intake and Output 03/12/17 03/13/17 19:00 07:00 Intake Total 1320 ml 650 ml Output Total 2122 ml 1113 ml Balance -802 ml -463 ml Intake Oral 720 ml IV Total 600 ml 650 ml Output Urine Total 2100 ml 1075 ml Drainage Total 22 ml 38 ml # Bowel Movements 1 Laboratory Tests 03/12/17 13:45: White Blood Count 15.5#H, Red Blood Count 4.14L, Hemoglobin 11.3L, Hematocrit 34.8L, Mean Corpuscular Volume 84, Mean Corpuscular Hemoglobin 27.2, Mean Corpuscular Hemoglobin Concent 32.4, Red Cell Distribution Width 13.0, Platelet Count 587H, Mean Platelet Volume 4.5L, Neutrophils (%) (Auto) , Lymphocytes (%) (Auto) , Monocytes (%) (Auto) , Eosinophils (%) (Auto) , Basophils (%) (Auto) , Differential Total Cells Counted 100, Neutrophils % (Manual) 92H, Lymphocytes % (Manual) 2L, Monocytes % (Manual) 3, Eosinophils % (Manual) 3, Basophils % ( Manual) 0, Band Neutrophils 0, Platelet Estimate IncreasedH, Platelet Morphology Normal, Hypochromasia 1+, Sodium Level 133L, Potassium Level 4.1, Chloride Level 93L, Carbon Dioxide Level 26, Anion Gap 14, Blood Urea Nitrogen 6L, Creatinine 0.6L, Estimat Glomerular Filtration Rate > 60, Glucose Level 147H , Calcium Level 8.7 03/13/17 03:20: Vancomycin Level Trough 15.3H 03/13/17 06:00: Urine Color [Pending], Urine Appearance [Pending], Urine pH [Pending], Urine Specific [place] [Pending], Urine Protein [Pending], Urine Glucose (UA) [Pending ], Urine Ketones [Pending], Urine Occult Blood [Pending], Urine Nitrite [Pending ], Urine Bilirubin [Pending], Urine Urobilinogen [Pending], Urine Leukocyte Esterase [Pending] Height (Feet): 5 Height (Inches): 11.00 Weight (Pounds): 175 Objective GENERAL: Alert, awake, and oriented x3. HEENT: PERRLA. NECK: Range of motion is full in all directions. No tenderness. No adenopathy. LUNGS: Clear. HEART: Regular. ABDOMEN: Benign. BACK: Range of motion is decreased due to the patient's condition with tenderness to paraspinal muscles. No tenderness to trapezius or rhomboid muscles. EXTREMITIES: Bandages noted and bilateral groin tenderness to palpation. NEURO: No changes. MARINA PENG March 13, 2017 08:51
[2017-03-13 08:55] LABS: APPEARANCE,URINE SLIGHTLY CLOUDY; KETONES,URINE NEGATIVE (NEGATIVE); LEUKOCYTE ESTERASE ,URINE NEGATIVE (NEGATIVE); NITRITE,URINE NEGATIVE (NEGATIVE); PH,URINE 6.5 (4.5-8.0); PROTEIN,URINE NEGATIVE (NEGATIVE); UROBILINOGEN,URINE 1 MG/DL (0.0-1.0)
[2017-03-13 08:56] LABS: BACTERIA,URINE FEW /HPF; SQUAMOUS EPITHELIAL CELL,UR FEW /LPF (NONE/OCC); WBC,URINE 0-2 /HPF (0 - 0)
[2017-03-13] MEDS: Lactobacillus-GG tablet ORAL SCH ×2 (09:00→18:20)
[2017-03-13] MEDS ORDERED: Rate Change PCA 1 Each MISC PRN ×2 (09:00→15:00)
[2017-03-13] MEDS: Docusate 100mg cap ORAL SCH ×2 (09:00→18:20)
[2017-03-13] MEDS ORDERED: Naloxone 0.4mg/ml Inj IVP PRN (09:30)
[2017-03-13] MEDS ORDERED: PCA HYDROmorphone 1mg/ml 30 ML IV PRN ×2 (09:30→15:00)
[2017-03-13] MEDS: D5NS 1,000 ML IV SCH (10:45)
[2017-03-13] MEDS ORDERED: Propofol 10mg/ml 20ml IV ONE (12:00)
[2017-03-13] MEDS ORDERED: Sterile Water Irrig 1000ml IRRIG ONE (12:00)
[2017-03-13] MEDS ORDERED: LR 1000ml ONE (12:00)
[2017-03-13] MEDS ORDERED: fentaNYL 100 mcg/2 mL IV ONE (12:00)
[2017-03-13] MEDS ORDERED: Ketamine 500mg Inj ONE (12:00)
[2017-03-13] MEDS ORDERED: NS Irrig 1000ml ONE (12:00)
[2017-03-13] MEDS ORDERED: Midazolam 2mg/2ml Inj ONE ×2 (12:00)
[2017-03-13] MEDS ORDERED: Morphine Sulfate 10mg/ml Inj ONE (12:00)
[2017-03-13] MEDS ORDERED: Bacitracin 50000 Units Vial ONE ×2 (12:49→13:47)
[2017-03-13] MEDS ORDERED: Surgicel 4in x 8in TOPIC ONE ×2 (12:49→14:25)
[2017-03-13] MEDS ORDERED: Lidocaine 1% 10mg/ml/Epi 0.005mg/ml 30ml vial INJ ONE (12:49)
--- NOTE | 2017-03-13 13:29 | Pre-Procedure Note/Attestation ---
Pre-Procedure Note/Attestation Complete Prior to Procedure Planned Procedure: bilateral Procedure Narrative: Bilateral groin debridement and partial reclosure Attestation I attest that I discussed the nature of the procedure; its benefits; risks and complications; and alternatives (and the risks and benefits of such alternatives ), prior to the procedure, with the patient (or the patient's legal utility sales representative). I attest that, if there was a reasonable possibility of needing a blood transfusion, the patient (or the patient's legal utility sales representative) was given the [facility] standardized written summary, pursuant to the Ryne Archana Blood Safety Act ([place] Health and Safety Code # 1645, as amended). I attest that I re-evaluated the patient just prior to the surgery and that there has been no change in the patient's H&P, except as documented below: RENÉE ANNE March 13, 2017 13:29
[2017-03-13] MEDS ORDERED: LR 1000ml 1,000 ML IVLG SCH (14:01)
--- NOTE | 2017-03-13 14:01 | Anethesia Preoperative Eval ---
Anesthesia Pre-op PMH/ROS General Date of Evaluation: March 13, 2017 Time of Evaluation: 12:55 Anesthesiologist: Zac ASA Score: ASA 2 Mallampati Score Class I : Soft palate, uvula, fauces, pillars visible Class II: Soft palate, uvula, fauces visible Class III: Soft palate, base of uvula visible Class IV: Only hard plate visible Mallampati Classification: Class II Surgeon: Brandon Diagnosis: Recurrent HS Surgical Procedure: Revision of bilateral groin wounds Anesthesia History: none Family History: no anesthesia problems Allergies: Coded Allergies: No Known Allergies (Unverified , 03/01/17) Past Medical History Cardiovascular: Denies: CAD, HTN, ND, arrhythmia, other, valve dz Pulmonary: Denies: COPD, OPHELIA, asthma, other Gastrointestinal/Genitourinary: Reports: GERD, Denies: CRI, ESRD, other Neurologic/Psychiatric: Reports: depression/anxiety, Denies: CVA, TIA, dementia, other Endocrine: Denies: DM, hypothyroidism, other, steroids HEENT: Denies: ALGAACIQ (L), ALGAACIQ (R), cataract (L), cataract (R), glaucoma, other Hematology/Immune: Denies: DVT, anemia, bleeding disorder, other Musculoskeletal/Integumentary: Reports: other - Recurrent HS, Denies: DDD, DJD, OA, RA, edema PMH Narrative: as above PSxH Narrative: Multiple Sx for HS treatment Anesthesia Pre-op Phys. Exam Physician Exam Last Vital Signs Date Time Temp Pulse Resp B/P Pulse Ox O2 Delivery O2 Flow Rate FiO2 03/13/17 12:00 97.3 90 20 104/59 98 Room Air 03/07/17 04:00 2.0 Constitutional: NAD Neurologic: CN 2-12 intact Cardiovascular: RRR, no M/R/G Respiratory: CTA Gastrointestinal: S/NT/ND Airway Exam Mallampati Score: Class II MO: full Neck: flexible ROM: full Teeth: intact Dentures: no lower, no upper Anesthesia Pre-op A/P Labs see chart Risk Assessment & Plan Assessment: ASA 2 Plan: GA with LMA Status Change Before Surgery: No Pre-Antibiotics Drug: as scheduled Given Within 1 Hr of Incision: No SEB MCWILLIAMS M.D. March 13, 2017 14:01
[2017-03-13] MEDS ORDERED: Midazolam 2mg/2ml Inj IVP PRN (14:15)
[2017-03-13] MEDS ORDERED: DiphenhydrAMINE 50mg/ml Inj IVP PRN (14:15)
[2017-03-13] MEDS ORDERED: D5NS 1,000 ML IV SCH (14:15)
[2017-03-13] MEDS ORDERED: Meperidine 25mg/0.5ml Inj IV PRN (14:15)
[2017-03-13] MEDS ORDERED: Hydromorphone 0.5mg/0.5ml inj IVP PRN (14:15)
[2017-03-13] MEDS ORDERED: Metoclopramide 10mg/2ml Inj IVP PRN (14:15)
--- NOTE | 2017-03-13 14:42 | Operative Note - PDOC ---
Operative Note Operative Note Procedure: Bilateral groin debridement and partial wound closure Post-op Diagnosis: same as pre-op Surgeon: Brandon Technical Recruiter: Jeremiah Anesthesia: general Specimen: yes Condition: stable Estimated Blood Loss: volume Drains: none Implant(s) used?: No RENÉE ANNE March 13, 2017 14:42
--- NOTE | 2017-03-13 14:54 | Immediate Post-Op Evaluation ---
Immediate Post-Op Evalulation Immediate Post-Op Evalulation Procedure: Debridement and closure of bilateral groin wounds Date of Evaluation: March 13, 2017 Time of Evaluation: 14:53 IV Fluids: 1000 Blood Products: none Estimated Blood Loss: 50 Urinary Output: 100 Blood Pressure Systolic: 148 Blood Pressure Diastolic: 69 Pulse Rate: 108 Respiratory Rate: 22 O2 Sat by Pulse Oximetry: 99 Temperature (Fahrenheit): 98.3 Pain Score (1-10): 2 Nausea: No Vomiting: No Complications none Patient Status: reacts, patent, none Hydration Status: adequate SEB MCWILLIAMS M.D. March 13, 2017 14:54
[2017-03-13] MEDS: PCA HYDROmorphone 1mg/ml 30 ML IV PRN (15:12)
[2017-03-13] MEDS: fentaNYL 100 mcg/2 mL IV PRN ×2 (15:50→16:02)
[2017-03-13] MEDS ORDERED: PCA shift volume MISC SCH (19:00)
--- NOTE | 2017-03-13 19:21 | General Progress Note ---
Assessment/Plan Problem List: (1) Abscess Assessment & Plan: s/p I+D of groin UA neg for UTI Alonzo in WBC likely wound related, will re-evaluate after further debridement surgery, d/w plastic surgery EKG/duplex neg f/u blood cx Wound cx enterococcus, cont vanco Pain control Supp care Cont IV abx DVT ppx Wound care per Plastic surgery A total of 32 additional mins of time was spent above and beyond the time of the face to face visit ICD Codes: L02.91 - Cutaneous abscess, unspecified SNOMED: [id number] Subjective Date patient seen: March 13, 2017 Time patient seen: 19:20 ROS Limited/Unobtainable: No Allergies: Coded Allergies: No Known Allergies (Unverified , 03/01/17) Subjective s/p surgery today. No chest pain or dyspnea, postop pain well controlled. No periop or postop complications, postop pain well controlled. Objective Last 24 Hour Vital Signs Date Time Temp Pulse Resp B/P Pulse Ox O2 Delivery O2 Flow Rate FiO2 03/13/17 16:54 98.1 105 20 112/61 99 Room Air 03/13/17 16:15 20 03/13/17 16:13 98.2 107 20 134/64 100 Nasal Cannula 3.0 03/13/17 16:04 97.4 03/13/17 16:04 97.4 03/13/17 16:03 97.4 03/13/17 16:03 97.4 03/13/17 16:02 111 20 141/67 100 Nasal Cannula 3.0 03/13/17 16:00 20 03/13/17 15:50 113 20 137/70 100 Simple Mask 8.0 03/13/17 15:45 20 03/13/17 15:45 115 20 140/65 100 Simple Mask 8.0 03/13/17 15:30 117 20 143/66 100 Simple Mask 8.0 03/13/17 15:18 115 20 144/65 100 Simple Mask 8.0 03/13/17 15:12 20 03/13/17 15:10 121 20 137/75 100 Simple Mask 8.0 03/13/17 14:57 119 20 138/66 100 Simple Mask 8.0 03/13/17 14:54 108 22 99 03/13/17 14:52 110 20 135/61 100 Simple Mask 8.0 03/13/17 14:47 97.8 118 20 141/69 100 Simple Mask 8.0 03/13/17 12:00 97.3 90 20 104/59 98 Room Air 03/13/17 12:00 20 03/13/17 08:00 97.0 99 20 107/63 98 Room Air 03/13/17 08:00 20 03/13/17 04:00 16 03/13/17 04:00 97.9 96 18 107/63 97 Room Air 03/13/17 00:00 97.2 93 18 109/60 98 Room Air 03/13/17 00:00 17 03/12/17 20:00 98.1 92 18 106/61 97 Room Air 03/12/17 20:00 16 Intake and Output 03/12/17 03/13/17 19:00 07:00 Intake Total 1320 ml 700 ml Output Total 2122 ml 1113 ml Balance -802 ml -413 ml Intake Oral 720 ml IV Total 600 ml 700 ml Output Urine Total 2100 ml 1075 ml Drainage Total 22 ml 38 ml # Bowel Movements 1 Laboratory Tests 03/13/17 03:20: Vancomycin Level Trough 15.3H 03/13/17 06:00: Urine Color Yellow, Urine Appearance Slightly cloudy, Urine pH 6.5, Urine Specific [place] 1.015, Urine Protein Negative, Urine Glucose (UA) Negative, Urine Ketones Negative, Urine Occult Blood 2+H, Urine Nitrite Negative, Urine Bilirubin Negative, Urine Urobilinogen 1H, Urine Leukocyte Esterase Negative, Urine RBC 10-15H, Urine WBC 0-2, Urine Squamous Epithelial Cells Few, Urine Bacteria Few Height (Feet): 5 Height (Inches): 11.00 Weight (Pounds): 175 Objective General: alert, cooperative, no distress, appears stated age Head: normocephalic, without obvious abnormality, atraumatic Eyes: conjunctivae/corneas clear. PERRL, EOM's intact Throat: lips, mucosa, and tongue normal. MMM Neck: supple, symmetrical, trachea midline, and no JVD Lungs: clear to auscultation bilaterally Heart: regular rate and rhythm, S1, S2 normal, no murmur, click, rub or gallop Abdomen: soft, non-tender, non-distended, bowel sounds normal; no masses or organomegaly Extremities: extremities normal, atraumatic, no cyanosis or edema Pulses: 2+ and symmetric Skin: skin color, texture, turgor normal; no rashes or lesions Neurologic: grossly normal, no focal deficits ERNESTINE JAIMES March 13, 2017 19:21
--- NOTE | 2017-03-13 20:02 | Operative Note - Dictated ---
DATE OF OPERATION: 03/13/2017 PREOPERATIVE DIAGNOSIS: Bilateral open groin wound, status post reconstruction with dehiscence. POSTOPERATIVE DIAGNOSIS: Bilateral open groin wound, status post reconstruction with dehiscence. PROCEDURE: 1. Preparation of left groin wound for partial closure and debridement. 2. Partial adjacent tissue transfer closure of left groin wound. 3. Debridement and preparation of right groin wound for partial closure. 4. Partial adjacent tissue transfer closure of right groin wound. SURGEON: Bradley Taylor M.D. SET MAKING MACHINE OPERATOR: Chastity Daniels M.D. ANESTHESIA: General. COMPLICATIONS: None. EBL: 50 mL. DISPOSITION: Stable to the recovery room. INDICATIONS FOR SURGERY: This is a 26-year-old male who is now approximately one week status post bilateral groin reconstruction, status post radical excision of hidradenitis. He had been doing well up to about postop day #4 when it was noted that he is having some dehiscence of his wounds and he had an elevated white count and it was felt that it was appropriate to proceed to the operating room with washout, debridement, and partial closure of the wound and to leave the wound open centrally. He understood the risks and benefits of surgery and agreed to proceed. DETAILS OF THE OPERATION: The patient was brought to the operating room and laid in the lithotomy position on the operating table and his surgical areas in the groin and upper thigh were prepped and draped in a sterile and usual fashion. We first began on the right groin where all the loose sutures and juan pablo were removed, and there were some areas on the medial thigh flap that had been elevated to close the wound and had to be debrided down to a healthy punctate bleeding as well as debridement of the wound bed itself to allow for better healing and wound closure. Once this was done and the wound was prepared, pulse lavage was used to copiously irrigate the wound and it appeared that approximately 25% of the wound edges could be closed superiorly and inferiorly to leave about 50% opening in the wound. As such, this was pursued first on the superior aspect of the wound where the previously raised medial thigh flap was further advanced and adjacent tissue transfer was pursued using #0 and 2-0 Vicryl sutures and juan pablo were used to close the skin superiorly and inferiorly. The previously raised medial thigh flap was then elevated in that region to allow for adjacent tissue transfer closure of this area using #0 and 2-0 Vicryl sutures and juan pablo to close the skin. So, again I reduced the wound as I mentioned by about 50%. The initial wound measurement was 20 x 15 cm and now, it became approximately 8 x 10 cm. The contralateral groin wound was then also approached in a similar fashion with first performing debridement of the wound bed as well as the wound edges and debridement of the flaps that have been previously elevated at skin edges together down to healthy punctate bleeding. In a similar fashion, it was felt that this wound would benefit from closure of the ends of the wound to allow for approximately only a 30% opening left in the wound on this side. So, in a similar fashion, the wound was then copiously irrigated with pulse lavage. The previously raised medial thigh flap was elevated superiorly and brought together in adjacent tissue transfer fashion to close the wound with #0 and 2-0 Vicryl, and juan pablo for the skin inferiorly. The superior aspect of the wound was left untouched as it was already well-healing. This thus completed the preparation and partial closure of the wounds. Surgicel was then placed in the wound bed and the wounds were packed and the patient will undergo daily dressing changes to allow for healing of the wound. Bradley Taylor M.D. DR: SHERMAN JOB#: [id number] CC:
[2017-03-13] MEDS: Heparin 5000 units/ml inj SUBQ SCH (20:34)
[2017-03-14 00:16] VITALS: BP 102/52
[2017-03-14] MEDS: Norco 10mg/325mg tab ORAL SCH ×4 (02:30→20:39)
[2017-03-14] MEDS ORDERED: Vancomycin 1gm inj IVPB ONE (03:33)
[2017-03-14 04:00] VITALS: BP 109/54
[2017-03-14] MEDS: Vancomycin 1250mg/D5W 275ml IVPB SCH ×6 (04:22→20:40)
[2017-03-14] MEDS: DiphenhydrAMINE 50mg/ml Inj IVP PRN ×3 (04:58→18:32)
[2017-03-14] MEDS: D5NS 1,000 ML IV SCH ×2 (07:00→23:44)
[2017-03-14] MEDS: PCA shift volume MISC SCH ×2 (07:00→19:00)
[2017-03-14 08:00] VITALS: BP 102/52
--- NOTE | 2017-03-14 08:27 | General Progress Note ---
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 The patient was discussed with Dr. Alvarado and Dr. Alvarado concurred. Subjective Date patient seen: March 14, 2017 Time patient seen: 07:00 - am Allergies: Coded Allergies: No Known Allergies (Unverified , 03/01/17) Subjective REVIEW OF SYSTEMS: Denies rash, fever, chills, sweating, dizziness, drowsiness, blurred vision, sore throat, and change in his weight. No shortness of breath or chest pain. No nausea, vomiting, diarrhea or blood in the stool or urine. No bowel or bladder incontinence. No dysuria. He is complaining of bilateral groin pain. SUBJECTIVE: Pt reports that his pain has been tolerated well and is s/p surgery. He has used 13.2mg of the PLATER SUPERVISOR Dilaudid with Rexford as saroj. Objective Last 24 Hour Vital Signs Date Time Temp Pulse Resp B/P Pulse Ox O2 Delivery O2 Flow Rate FiO2 03/14/17 04:00 98.1 108 19 109/54 97 Room Air 03/14/17 04:00 16 03/14/17 00:16 97.9 100 19 102/52 99 Room Air 03/14/17 00:00 17 03/13/17 20:00 98.6 98 18 114/57 99 Room Air 03/13/17 20:00 18 03/13/17 16:54 98.1 105 20 112/61 99 Room Air 03/13/17 16:15 20 03/13/17 16:13 98.2 107 20 134/64 100 Nasal Cannula 3.0 03/13/17 16:04 97.4 03/13/17 16:04 97.4 03/13/17 16:03 97.4 03/13/17 16:03 97.4 03/13/17 16:02 111 20 141/67 100 Nasal Cannula 3.0 03/13/17 16:00 20 03/13/17 15:50 113 20 137/70 100 Simple Mask 8.0 03/13/17 15:45 20 03/13/17 15:45 115 20 140/65 100 Simple Mask 8.0 03/13/17 15:30 117 20 143/66 100 Simple Mask 8.0 03/13/17 15:18 115 20 144/65 100 Simple Mask 8.0 03/13/17 15:12 20 03/13/17 15:10 121 20 137/75 100 Simple Mask 8.0 03/13/17 14:57 119 20 138/66 100 Simple Mask 8.0 03/13/17 14:54 108 22 99 03/13/17 14:52 110 20 135/61 100 Simple Mask 8.0 03/13/17 14:47 97.8 118 20 141/69 100 Simple Mask 8.0 03/13/17 12:00 97.3 90 20 104/59 98 Room Air 03/13/17 12:00 20 Intake and Output 03/13/17 03/14/17 19:00 07:00 Intake Total 1200 ml 1180 ml Output Total 950 ml 1000 ml Balance 250 ml 180 ml Intake Oral 480 ml IV Total 1200 ml 700 ml Output Urine Total 900 ml 1000 ml Estimated Blood Loss 50 ml # Voids 2 Height (Feet): 5 Height (Inches): 11.00 Weight (Pounds): 175 Objective GENERAL: Alert, awake, and oriented x3. HEENT: PERRLA. NECK: Range of motion is full in all directions. No tenderness. No adenopathy. LUNGS: Clear. HEART: Regular. ABDOMEN: Benign. BACK: Range of motion is decreased due to the patient's condition with tenderness to paraspinal muscles. No tenderness to trapezius or rhomboid muscles. EXTREMITIES: Bandages noted and bilateral groin tenderness to palpation. NEURO: No changes. MARINA PENG March 14, 2017 08:27
--- NOTE | 2017-03-14 08:32 | General Progress Note ---
Progress Note Progress Note Pt seen and examined. POD # 1 from washout of wounds and partial reclosure. Doing well and in minimal discomfort. Will check CBC this AM and and will start dressing changes wet to dry BID in AM. RENÉE Young MD March 14, 2017 08:32
[2017-03-14] MEDS: Docusate 100mg cap ORAL SCH ×2 (08:53→18:13)
[2017-03-14] MEDS: Lactobacillus-GG tablet ORAL SCH ×2 (08:53→18:13)
[2017-03-14] MEDS: Heparin 5000 units/ml inj SUBQ SCH ×2 (08:55→20:40)
--- NOTE | 2017-03-14 09:22 | 48 Hour Post Anesthesia Eval ---
Post Anesthesia Evaluation Procedure: Debridement and closure of bilateral groin wounds Date of Evaluation: March 14, 2017 Time of Evaluation: 09:22 Blood Pressure Systolic: 102 0: 52 Pulse Rate: 116 Respiratory Rate: 20 Temperature (Fahrenheit): 98.2 O2 Sat by Pulse Oximetry: 96 Airway: patent Nausea: No Vomiting: No Pain Intensity: 2 Hydration Status: adequate Cardiopulmonary Status: Stable Mental Status/LOC: patient returned to baseline Follow-up Care/Observations: 0 Post-Anesthesia Complications: 0 Follow-up care needed: N/A Maico Bullard MD March 14, 2017 09:22
[2017-03-14 09:46] LABS: EOSINOPHILS % (AUTO) 7.5 % (0.0-3.0); LYMPHOCYTES % (AUTO) 8.2 % (20.0-45.0); MEAN CORPUSCULAR HEMOGLOBIN 27.1 PG (27.0-31.0); MEAN CORPUSCULAR HGB CONC 32.4 G/DL (32.0-36.0); MEAN CORPUSCULAR VOLUME 84 FL (80-99); MEAN PLATELET VOLUME 4.6 FL (6.5-10.1); MONOCYTES % (AUTO) 6.5 % (1.0-10.0); NEUTROPHILS % (AUTO) 76.8 % (45.0-75.0); PLATELET COUNT 534 K/UL (150-450); RED BLOOD COUNT 3.36 M/UL (4.70-6.10); RED CELL DISTRIBUTION WIDTH 13.3 % (11.6-14.8); WHITE BLOOD COUNT 12.1 K/UL (4.8-10.8)
[2017-03-14 12:00] VITALS: BP 95/51
[2017-03-14 16:00] VITALS: BP 102/55
[2017-03-14] MEDS: PCA HYDROmorphone 1mg/ml 30 ML IV PRN (16:30)
--- NOTE | 2017-03-14 19:13 | General Progress Note ---
Assessment/Plan Problem List: (1) Abscess Assessment & Plan: s/p I+D of groin UA neg for UTI Alonzo in WBC likely wound related, will re-evaluate after further debridement surgery, d/w plastic surgery EKG/duplex neg f/u blood cx Wound cx enterococcus, cont vanco Pain control Supp care Cont IV abx DVT ppx Wound care per Plastic surgery A total of 32 additional mins of time was spent above and beyond the time of the face to face visit ICD Codes: L02.91 - Cutaneous abscess, unspecified SNOMED: 115933058 (2) Myoclonic jerking while sleeping Assessment & Plan: Check TSH, iron levels, ca, BMP Add muscle relaxnat prn ICD Codes: G25.3 - Myoclonus SNOMED: [id number] Subjective Date patient seen: March 14, 2017 Time patient seen: 19:10 ROS Limited/Unobtainable: No Allergies: Coded Allergies: No Known Allergies (Unverified , 03/01/17) Subjective s/p surgery today. No chest pain or dyspnea, postop pain well controlled. No periop or postop complications, postop pain well controlled. Pt c/o involuntary jerking of legs since yesterday, worse with sleeping, awakens due to this, no other neurologic complaints. Objective Last 24 Hour Vital Signs Date Time Temp Pulse Resp B/P Pulse Ox O2 Delivery O2 Flow Rate FiO2 03/14/17 17:33 97.9 03/14/17 16:37 18 03/14/17 16:36 18 03/14/17 16:00 100.4 108 20 102/55 98 Room Air 03/14/17 15:45 97.9 03/14/17 12:00 18 03/14/17 12:00 97.9 99 20 95/51 99 Room Air 03/14/17 09:22 116 20 96 03/14/17 08:00 98.2 116 20 102/52 96 Room Air 03/14/17 08:00 18 03/14/17 04:00 98.1 108 19 109/54 97 Room Air 03/14/17 04:00 16 03/14/17 00:16 97.9 100 19 102/52 99 Room Air 03/14/17 00:00 17 03/13/17 20:00 98.6 98 18 114/57 99 Room Air 03/13/17 20:00 18 Intake and Output 03/13/17 03/14/17 19:00 07:00 Intake Total 1200 ml 1180 ml Output Total 950 ml 1000 ml Balance 250 ml 180 ml Intake Oral 480 ml IV Total 1200 ml 700 ml Output Urine Total 900 ml 1000 ml Estimated Blood Loss 50 ml # Voids 2 Laboratory Tests 03/14/17 09:25: White Blood Count 12.1H, Red Blood Count 3.36L, Hemoglobin 9.1L, Hematocrit 28.2L, Mean Corpuscular Volume 84, Mean Corpuscular Hemoglobin 27.1, Mean Corpuscular Hemoglobin Concent 32.4, Red Cell Distribution Width 13.3, Platelet Count 534H, Mean Platelet Volume 4.6L, Neutrophils (%) (Auto) 76.8H, Lymphocytes (%) (Auto) 8.2L, Monocytes (%) (Auto) 6.5, Eosinophils (%) (Auto) 7.5H, Basophils (%) (Auto) 1.0 Height (Feet): 5 Height (Inches): 11.00 Weight (Pounds): 175 Objective General: alert, cooperative, no distress, appears stated age Head: normocephalic, without obvious abnormality, atraumatic Eyes: conjunctivae/corneas clear. PERRL, EOM's intact Throat: lips, mucosa, and tongue normal. MMM Neck: supple, symmetrical, trachea midline, and no JVD Lungs: clear to auscultation bilaterally Heart: regular rate and rhythm, S1, S2 normal, no murmur, click, rub or gallop Abdomen: soft, non-tender, non-distended, bowel sounds normal; no masses or organomegaly Extremities: extremities normal, atraumatic, no cyanosis or edema Pulses: 2+ and symmetric Skin: skin color, texture, turgor normal; no rashes or lesions Neurologic: grossly normal, no focal deficits ERNESTINE JAIMES March 14, 2017 19:13
[2017-03-14 20:00] VITALS: BP 105/55
[2017-03-14] MEDS: Zolpidem 5mg tab ORAL PRN (22:35)
[2017-03-15] MEDS: D5NS 1,000 ML IV SCH ×2 (02:57→20:32)
[2017-03-15] MEDS: Norco 10mg/325mg tab ORAL SCH (02:58)
[2017-03-15] MEDS: Vancomycin 1250mg/D5W 275ml IVPB SCH ×6 (03:03→20:00)
[2017-03-15 04:00] VITALS: BP 109/59
[2017-03-15] MEDS: DiphenhydrAMINE 50mg/ml Inj IVP PRN ×2 (06:59→17:15)
[2017-03-15 08:03] LABS: THYROID STIMULATING HORMONE 0.701 uIU/mL (0.300-4.500)
[2017-03-15 08:05] LABS: HEMOLYSIS 0; IRON 13 ug/dL (59-158); TOTAL IRON BINDING CAPACITY 156 ug/dL (250-400)
[2017-03-15 08:08] LABS: ANION GAP 12 (5-15); CALCIUM 8.8 mg/dL (8.6-10.2); CARBON DIOXIDE 28 mEQ/L (20-30); CHLORIDE 95 mEQ/L (98-107); CREATININE 0.6 mg/dL (0.7-1.2); GLOMERULAR FILTRATION RATE > 60 mL/min (>60); POTASSIUM 3.9 mEQ/L (3.4-4.9); SODIUM 135 mEQ/L (135-145)
--- NOTE | 2017-03-15 08:47 | General Progress Note ---
Assessment/Plan Assessment/Plan (1) Hidradenitis Suppurativa (2) Abscess (3) S/p bilateral groin infected tissue excision and flap elevation (4) S/p bilateral groin wound closure and buttock lesion excision (5) Bilateral groin pain Pt will be discontinued on PLASTICS SPREADING MACHINE OPERATOR Dilaudid and Channahon. We will reduce Dilaudid to 1mg IVP Q6H PRN severe pain and start Percocet 10/325mg PO 1 tab Q4H PRN moderate pain. The patient was discussed with Dr. Alvarado and Dr. Alvarado concurred. Subjective Date patient seen: March 15, 2017 Time patient seen: 07:30 - am Allergies: Coded Allergies: No Known Allergies (Unverified , 03/01/17) Subjective REVIEW OF SYSTEMS: Denies rash, fever, chills, sweating, dizziness, drowsiness, blurred vision, sore throat, and change in his weight. No shortness of breath or chest pain. No nausea, vomiting, diarrhea or blood in the stool or urine. No bowel or bladder incontinence. No dysuria. He is complaining of bilateral groin pain. SUBJECTIVE: Pt has stopped the PLASTICS SPREADING MACHINE OPERATOR Dilaudid. He reports that the Channahon has been ineffective and needs to request the Dilaudid. I d/w pt about stopping the Channahon and reducing the Dilaudid and starting him on Percocet. Mother is at bedside. Objective Last 24 Hour Vital Signs Date Time Temp Pulse Resp B/P Pulse Ox O2 Delivery O2 Flow Rate FiO2 03/15/17 04:11 97.9 03/15/17 04:00 98.1 107 20 109/59 99 Room Air 03/14/17 23:43 97.9 03/14/17 20:00 98.1 107 20 105/55 99 Room Air 03/14/17 20:00 18 03/14/17 17:33 97.9 03/14/17 16:37 18 03/14/17 16:36 18 03/14/17 16:00 100.4 108 20 102/55 98 Room Air 03/14/17 12:00 18 03/14/17 12:00 97.9 99 20 95/51 99 Room Air 03/14/17 09:22 116 20 96 Intake and Output 03/14/17 03/15/17 19:00 07:00 Intake Total 250 ml 1050 ml Output Total 650 ml 1900 ml Balance -400 ml -850 ml Intake Oral 200 ml 100 ml IV Total 50 ml 950 ml Output Urine Total 650 ml 1900 ml Laboratory Tests 03/14/17 09:25: White Blood Count 12.1H, Red Blood Count 3.36L, Hemoglobin 9.1L, Hematocrit 28.2L, Mean Corpuscular Volume 84, Mean Corpuscular Hemoglobin 27.1, Mean Corpuscular Hemoglobin Concent 32.4, Red Cell Distribution Width 13.3, Platelet Count 534H, Mean Platelet Volume 4.6L, Neutrophils (%) (Auto) 76.8H, Lymphocytes (%) (Auto) 8.2L, Monocytes (%) (Auto) 6.5, Eosinophils (%) (Auto) 7.5H, Basophils (%) (Auto) 1.0 03/15/17 06:20: Sodium Level 135, Potassium Level 3.9, Chloride Level 95L, Carbon Dioxide Level 28, Anion Gap 12, Blood Urea Nitrogen 5L, Creatinine 0.6L, Estimat Glomerular Filtration Rate > 60, Glucose Level 92, Calcium Level 8.8, Ionized Calcium ( Measured) [Pending], Iron Level 13L, Total Iron Binding Capacity 156L, Percent Iron Saturation 8L, Unsaturated Iron Binding 143, Thyroid Stimulating Hormone ( TSH) 0.701 Height (Feet): 5 Height (Inches): 11.00 Weight (Pounds): 175 Objective GENERAL: Alert, awake, and oriented x3. HEENT: PERRLA. NECK: Range of motion is full in all directions. No tenderness. No adenopathy. LUNGS: Clear. HEART: Regular. ABDOMEN: Benign. BACK: Range of motion is decreased due to the patient's condition with tenderness to paraspinal muscles. No tenderness to trapezius or rhomboid muscles. EXTREMITIES: Bandages noted and bilateral groin tenderness to palpation. NEURO: No changes. MARINA PENG March 15, 2017 08:47
[2017-03-15] MEDS ORDERED: HYDROmorphone 1mg/ml Carpuject IVP PRN (09:15)
[2017-03-15 09:42] LABS: IONIZED CALCIUM 1.15 mmol/L (1.10-1.35)
[2017-03-15] MEDS: Docusate 100mg cap ORAL SCH ×2 (10:02→17:15)
[2017-03-15] MEDS: Lactobacillus-GG tablet ORAL SCH ×2 (10:02→17:14)
[2017-03-15] MEDS: Heparin 5000 units/ml inj SUBQ SCH ×2 (10:04→20:50)
--- NOTE | 2017-03-15 11:37 | Diagnostic Imaging Report ---
APPROVED REPORT CPT Code: 24816 Present Symptoms Upper Extremity Pain: Left Upper Extremity Edema: Left Length: Risk Factors Post OP RIGHT UPPER EXTREMITY: Venous imaging reveals patency of the internal jugular, subclavian, axillary and brachial veins. The cephalic and basilic veins are also patent. Doppler indicates normal spontaneous flow within these venous segments. LEFT UPPER EXTREMITY: Venous imaging reveals patency of the internal jugular, subclavian, axillary and brachial veins. The proximal cephalic and basilic veins are also patent. Doppler indicates normal spontaneous flow within these venous segments. The cephalic vein is thrombosed from the antecubital fossa to the mid forearm. There is no evidence of acute deep vein thrombosis. KELSEY Sutton and KELSEY Broussard were informed of abnormal results at 21:00 hrs.
--- NOTE | 2017-03-15 11:38 | Diagnostic Imaging Report ---
APPROVED REPORT CPT Code: 55826 Present Symptoms Comments: Hx of Hidradenitis Bilateral groin infected tissue excision BILATERAL: Imaging reveals a patent deep venous system bilaterally. There is no evidence of thrombus within the mid to distal superficial femoral, popliteal or tibial segments. Doppler indicates normal spontaneous flow within these segments. Unable to assess the common, proximal superficial femoral and greater saphenous veins due to open surgery wounds, bilaterally.
[2017-03-15 12:00] VITALS: BP 103/58
[2017-03-15 16:00] VITALS: BP 112/65
[2017-03-15] MEDS ORDERED: D5NS 1000ml IV ONE (16:56)
--- NOTE | 2017-03-15 16:58 | General Progress Note ---
Assessment/Plan Problem List: (1) Abscess Assessment & Plan: s/p I+D of groin UA neg for UTI Alonzo in WBC improved EKG/duplex neg f/u blood cx Wound cx enterococcus, cont vanco Pain control Supp care Cont IV abx DVT ppx Wound care per Plastic surgery A total of 32 additional mins of time was spent above and beyond the time of the face to face visit ICD Codes: L02.91 - Cutaneous abscess, unspecified SNOMED: [id number] (2) Myoclonic jerking while sleeping Assessment & Plan: Normal TSH, ca, BMP Cont muscle relaxant prn ICD Codes: G25.3 - Myoclonus SNOMED: [id number] Subjective Date patient seen: March 15, 2017 Time patient seen: 16:56 ROS Limited/Unobtainable: No Allergies: Coded Allergies: No Known Allergies (Unverified , 03/01/17) Subjective s/p surgery today. No chest pain or dyspnea, postop pain well controlled. No periop or postop complications, postop pain well controlled. Involuntary jerking of legs since yesterday is much better today, c/o itching. Objective Last 24 Hour Vital Signs Date Time Temp Pulse Resp B/P Pulse Ox O2 Delivery O2 Flow Rate FiO2 03/15/17 15:26 97.9 03/15/17 12:00 97.9 107 18 103/58 96 Room Air 03/15/17 04:11 97.9 03/15/17 04:00 98.1 107 20 109/59 99 Room Air 03/14/17 23:43 97.9 03/14/17 20:00 98.1 107 20 105/55 99 Room Air 03/14/17 20:00 18 03/14/17 17:33 97.9 Intake and Output 03/14/17 03/15/17 19:00 07:00 Intake Total 250 ml 1050 ml Output Total 650 ml 1900 ml Balance -400 ml -850 ml Intake Oral 200 ml 100 ml IV Total 50 ml 950 ml Output Urine Total 650 ml 1900 ml Laboratory Tests 03/15/17 06:20: Sodium Level 135, Potassium Level 3.9, Chloride Level 95L, Carbon Dioxide Level 28, Anion Gap 12, Blood Urea Nitrogen 5L, Creatinine 0.6L, Estimat Glomerular Filtration Rate > 60, Glucose Level 92, Calcium Level 8.8, Ionized Calcium ( Measured) 1.15, Iron Level 13L, Total Iron Binding Capacity 156L, Percent Iron Saturation 8L, Unsaturated Iron Binding 143, Thyroid Stimulating Hormone (TSH) 0.701 Height (Feet): 5 Height (Inches): 11.00 Weight (Pounds): 175 Objective General: alert, cooperative, no distress, appears stated age Head: normocephalic, without obvious abnormality, atraumatic Eyes: conjunctivae/corneas clear. PERRL, EOM's intact Throat: lips, mucosa, and tongue normal. MMM Neck: supple, symmetrical, trachea midline, and no JVD Lungs: clear to auscultation bilaterally Heart: regular rate and rhythm, S1, S2 normal, no murmur, click, rub or gallop Abdomen: soft, non-tender, non-distended, bowel sounds normal; no masses or organomegaly Extremities: extremities normal, atraumatic, no cyanosis or edema Pulses: 2+ and symmetric Skin: skin color, texture, turgor normal; no rashes or lesions Neurologic: grossly normal, no focal deficits ERNESTINE JAIMES March 15, 2017 16:58
[2017-03-15 20:00] VITALS: BP 109/64
[2017-03-15] MEDS: Zolpidem 5mg tab ORAL PRN (20:32)
[2017-03-16] VITALS: BP 106/64
[2017-03-16] MEDS: DiphenhydrAMINE 50mg/ml Inj IVP PRN ×2 (02:20→12:19)
[2017-03-16 04:00] VITALS: BP 110/65
[2017-03-16] MEDS: Vancomycin 1250mg/D5W 275ml IVPB SCH ×4 (04:00→11:09)
[2017-03-16 08:00] VITALS: BP 111/63
[2017-03-16] MEDS: Docusate 100mg cap ORAL SCH ×2 (08:22→17:35)
[2017-03-16] MEDS: Lactobacillus-GG tablet ORAL SCH ×2 (08:22→17:35)
[2017-03-16] MEDS: Heparin 5000 units/ml inj SUBQ SCH (08:27)
--- NOTE | 2017-03-16 10:22 | General Progress Note ---
Assessment/Plan Assessment/Plan (1) Hidradenitis Suppurativa (2) Abscess (3) S/p bilateral groin infected tissue excision and flap elevation (4) S/p bilateral groin wound closure and buttock lesion excision (5) Bilateral groin pain We will continue Dilaudid and Percocet. Rx was written for discharge and he was advised to f/u with PMD and surgeon when discharged home. The patient was discussed with Dr. Alvarado and Dr. Alvarado concurred. Subjective Date patient seen: March 16, 2017 Time patient seen: 08:15 - am Allergies: Coded Allergies: No Known Allergies (Unverified , 03/01/17) Subjective REVIEW OF SYSTEMS: Denies rash, fever, chills, sweating, dizziness, drowsiness, blurred vision, sore throat, and change in his weight. No shortness of breath or chest pain. No nausea, vomiting, diarrhea or blood in the stool or urine. No bowel or bladder incontinence. No dysuria. He is complaining of bilateral groin pain. 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 Objective Last 24 Hour Vital Signs Date Time Temp Pulse Resp B/P Pulse Ox O2 Delivery O2 Flow Rate FiO2 03/16/17 08:00 98.2 93 18 111/63 97 Room Air 03/16/17 04:00 97.9 93 18 110/65 98 Room Air 03/16/17 00:00 97.7 94 18 106/64 100 Room Air 03/15/17 20:00 98.2 99 18 109/64 97 Room Air 03/15/17 16:00 97.9 108 20 112/65 98 Room Air 03/15/17 15:26 97.9 03/15/17 12:00 97.9 107 18 103/58 96 Room Air Intake and Output 03/15/17 03/16/17 19:00 07:00 Intake Total 540 ml 750 ml Balance 540 ml 750 ml Intake Oral 540 ml 300 ml IV Total 450 ml # Voids 1 Height (Feet): 5 Height (Inches): 11.00 Weight (Pounds): 175 Objective GENERAL: Alert, awake, and oriented x3. HEENT: PERRLA. NECK: Range of motion is full in all directions. No tenderness. No adenopathy. LUNGS: Clear. HEART: Regular. ABDOMEN: Benign. BACK: Range of motion is decreased due to the patient's condition with tenderness to paraspinal muscles. No tenderness to trapezius or rhomboid muscles. EXTREMITIES: Bandages noted and bilateral groin tenderness to palpation. NEURO: No changes. MARINA PENG March 16, 2017 10:22
[2017-03-16] MEDS ORDERED: PERCOCET 7.5-31 EACH ORAL (10:46)
[2017-03-16] MEDS ORDERED: VIBRAMYCIN100 MG ORAL (10:49)
[2017-03-16 12:00] VITALS: BP 113/69
--- NOTE | 2017-03-16 12:14 | Discharge Summary ---
Discharge Summary Hospital Course Date of Admission March 01, 2017 at 15:10 Date of Discharge March 16, 2017 Admitting Diagnosis groin abscesses Reason for Hospitalization: as above HPI Yunior Hollins is a 26 year old male who was admitted on March 01, 2017 at 15:10 for Hidradenitis Suppuritiva Consultations Plastic Surgery Procedures See multiple operative reports Hospital Course 26 y/o man admitted with multiple groin abscesses in the setting of hx of hidradenitis suppurativa. Pt was admitted through the ED with pain from the groin, started on IV abx. Pt then underwent multiple wound surgeries, without any periop or postop complications. Once his pain was controlled on PO meds and wounds were stable, he was dced home with outpt followup in 1-2 weeks with his surgeon and will go home with wound care. Discharge Medications Continued Medications: Duloxetine Hcl* (Cymbalta*) 60 Mg Capsule.dr 60 MG ORAL DAILY, CAP Oxycodone Hcl/Acetaminophen 7.5-325 Mg (Percocet 7.5-325 Mg Tablet) 1 Each Tablet 1 TAB ORAL Q4H PRN for For Pain, #45 TAB Discharge Condition Upon Discharge: stable Discharge Disposition Patient was discharged to Home with [facility]() Discharge Diagnoses: (1) Abscess ERNESTINE JAIMES March 16, 2017 12:14
[2017-03-16] MEDS ORDERED: HYDROXYZINE HCL25 M1 PO (14:40)
[2017-03-16] MEDS ORDERED: NS Irrig 1000ml ONE (17:28)
[2017-03-16] MEDS: D5NS 1,000 ML IV SCH (18:45)
== END 2017-03-16 20:30 | disposition home health service (06) | DRG 574 ==
LOC: EMR 14:42 → 3E 15:10 → EDBEDREQ 15:15
PROC: 0JB90ZZ Excision of Buttock Subcutaneous Tissue and Fascia, Open Approach (ICD-10-PCS; principal; 2017-03-01)
PROC: 0JBC0ZZ Excision of Pelvic Region Subcutaneous Tissue and Fascia, Open Approach (ICD-10-PCS; principal; 2017-03-01)
PROC: 0JXL0ZC Transfer Right Upper Leg Subcutaneous Tissue and Fascia with Skin, Subcutaneous Tissue and Fascia, Open Approach (ICD-10-PCS; principal; 2017-03-01)
PROC: 0JXM0ZC Transfer Left Upper Leg Subcutaneous Tissue and Fascia with Skin, Subcutaneous Tissue and Fascia, Open Approach (ICD-10-PCS; principal; 2017-03-01)
PROC: 0JX80ZC Transfer Abdomen Subcutaneous Tissue and Fascia with Skin, Subcutaneous Tissue and Fascia, Open Approach (ICD-10-PCS; principal; 2017-03-01)
PROC: 0JR Subcutaneous Tissue and Fascia, Replacement (ICD-10-PCS; 2017-03-06)
PROC: 0JX80ZC Transfer Abdomen Subcutaneous Tissue and Fascia with Skin, Subcutaneous Tissue and Fascia, Open Approach (ICD-10-PCS; 2017-03-06)
PROC: 0JB90ZZ Excision of Buttock Subcutaneous Tissue and Fascia, Open Approach (ICD-10-PCS; 2017-03-06)
PROC: 0JDC0ZZ Extraction of Pelvic Region Subcutaneous Tissue and Fascia, Open Approach (ICD-10-PCS; 2017-03-13)
PROC: 0JX Subcutaneous Tissue and Fascia, Transfer (ICD-10-PCS; 2017-03-13)
DX: L02.214 Cutaneous abscess of groin (principal); T81.30XA Disruption of wound, unspecified, initial encounter; L02.31 Cutaneous abscess of buttock; L73.2 Hidradenitis suppurativa; Y83.8 Other surgical procedures as the cause of abnormal reaction of the patient, or of later complication, without mention of misadventure at the time of the procedure; Y92.238 Other place in hospital as the place of occurrence of the external cause; B95.2 Enterococcus as the cause of diseases classified elsewhere
CPT/HCPCS: 36415; 71010; 80048; 80053; 80202; 81003; 82330; 83540; 83550; 84443; 85007; 85025; 85610; 85730; 86850; 86900; 86901; 87070; 87075; 87081; 87181; 87205; 93005; 93970; 94003; 94150; J2180; J2250; J2405; J2710